=== PATIENT | female | born 1970 | race Caucasian/White ===

== ENCOUNTER 2017-03-05 13:57 | Inpatient (IN) | payer OTHER ==
[2017-03-05 15:58] VITALS: BMI 21.6
--- NOTE | 2017-03-05 18:54 | HP ---
Admission [facility] Chief Complaint: I WANT TO GO TO REHAB Allergies/Adverse Reactions: Allergies Allergy/AdvReac Type Severity Reaction Status Date / Time shellfish derived Allergy Severe Rash Verified 03/05/17 18:02 No Known Drug Allergies Allergy Verified 03/05/17 18:02 fish Allergy Severe Rash Uncoded 03/05/17 18:02 History of Present Illness: 46 YEARS OLD FEMALE WITH LONG HISTORY OF COCAINE DEPENDENCE HAS GERD NEUROPATHY ESOPHAGITIS Exam Limitations: No Limitations - Ebola screening Have you traveled outside of the country in the last 21 days: No Have you had contact with anyone from an Ebola affected area: No Have you been sick,other than usual withdrawal symptoms: No Do you have a fever: No - Review of Systems Constitutional: Weight Stable EENT: reports: Blurred Vision (LEFT EYE PERIPHERAL LOST) Respiratory: reports: No Symptoms reported Cardiac: reports: No Symptoms Reported GI: reports: Indigestion : reports: No Symptoms Reported Musculoskeletal: reports: Back Pain, Joint Pain, Muscle Pain, Neck Pain Integumentary: reports: Change in Color (ARMS + LEGS = ANXIETY = PICK SKIN) Neuro: reports: No Symptoms reported Endocrine: reports: No Symptoms Reported Hematology: reports: No Symptoms Reported Psychiatric: reports: Judgement Intact, Orientated x3, Anxious, Depressed Other Systems: Reviewed and Negative Patient History - Patient Medical History Hx Anemia: No Hx Asthma: Yes Hx Chronic Obstructive Pulmonary Disease (COPD): No Hx Cancer: No Hx Cardiac Disorders: No Hx Congestive Heart Failure: No Hx Hypertension: No Hx Hypercholesterolemia: No Hx Pacemaker: No HX Cerebrovascular Accident: Yes (04/2016 LEFT EYE ) Hx Seizures: No Hx Dementia: No Hx Diabetes: No Hx Gastrointestinal Disorders: No Hx Liver Disease: No Hx Genitourinary Disorders: No Hx Sexually Transmitted Disorders: No Hx Renal Disease (ESRD): No Hx Thyroid Disease: No Hx Human Immunodeficiency Virus (HIV): No Hx Hepatitis C: No Hx Depression: Yes (AND ANXIETY) Hx Suicide Attempt: No Hx Bipolar Disorder: No Hx Schizophrenia: No - Patient Surgical History Past Surgical History: Yes Hx Neurologic Surgery: No Hx Cataract Extraction: No Hx Cardiac Surgery: No Hx Lung Surgery: No Hx Breast Surgery: No Hx Breast Biopsy: Yes (RIGHT BREAST) Hx Abdominal Surgery: Yes (FOR ACHALASIA IN 2011) Hx Appendectomy: No Hx Cholecystectomy: No Hx Genitourinary Surgery: Yes (FOR ECTOPIC IN 2001) Hx Section: No Hx Orthopedic Surgery: No Hx Hysterectomy: No Anesthesia Reaction: No - PPD History Previous Implant?: Yes Documented Results: Negative w/o proof Implanted On Prior [facility] Admission?: Yes Date: 04/17/15 Results: 0 PPD to be Administered?: Yes - Reproductive History Patient is a Female of Child Bearing Age (11 -55 yrs old): Yes Last Menstrual Period: 02/08/17 Patient : No - Smoking Cessation Smoking history: Current some day smoker Have you smoked in the past 12 months: No Aproximately how many cigarettes per day: 0 Cigars Per Day: 0 Hx Chewing Tobacco Use: No Initiated information on smoking cessation: No - Substance & Tx. History Hx Alcohol Use: No Hx Substance Use: Yes Substance Use Type: Cocaine, Heroin, Tranquilizers Hx Substance Use Treatment: Yes (09/15-09/20/16 [facility] - Substances Abused Cocaine Route: Injection Frequency: Daily Amount used: 100$ Age of first use: 24 Date of Last Use: 03/04/17 Family Disease History - Family Disease History Family Disease History: Other: Father (COPD) Other Family History: ONLY CHILD Admission Physical Exam S - Vital Signs Vital Signs: Vital Signs - 24 hr 03/05/17 15:55 Temperature 97.8 F Pulse Rate 73 Respiratory 20 Rate Blood Pressure 128/85 - Physical General Appearance: Yes: No Apparent Distress, Appropriately Dressed, Thin HEENTM: Yes: Hearing grossly Normal, Normal ENT Inspection, Normocephalic, Normal Voice, Other (LEFT EYE POOR PERIPHERAL VISION) Respiratory: Yes: Chest Non-Tender, Lungs Clear, Normal Breath Sounds, No Respiratory Distress, No Accessory Muscle Use Neck: Yes: Supple, Trachea in good position Breast: Yes: Breasts Symetrical Cardiology: Yes: Regular Rhythm, Regular Rate, S1, S2 Abdominal: Yes: Normal Bowel Sounds, Non Tender, Soft Genitourinary: Yes: Within Normal Limits Back: Yes: Normal Inspection Musculoskeletal: Yes: full range of Motion, Gait Steady, Back pain, Muscle Pain Extremities: Yes: Normal Range of Motion, Non-Tender, Erythema (MULTIPLE SKIN ABRASION + SCARS = SKIN PICKING "MANY YEARS") Neurological: Yes: Fully Oriented, Alert, Motor Strength 5/5, Depressed Affect Integumentary: Yes: Warm, Track [place] (RIGHT INNER ELBOW) Lymphatic: Yes: Within Normal Limits - Diagnostic (1) Anxiety and depression Current Visit: Yes Status: Suspected (2) Asthma Current Visit: Yes Status: Chronic Qualifiers: Asthma severity: mild intermittent Asthma complication type: with status asthmaticus Qualified Code(s): J45.22 - Mild intermittent asthma with status asthmaticus (3) Nicotine dependence Current Visit: Yes Status: Acute Qualifiers: Nicotine product type: cigarettes Substance use status: in withdrawal Qualified Code(s): F17.213 - Nicotine dependence, cigarettes, with withdrawal (4) GERD (gastroesophageal reflux disease) Current Visit: Yes Status: Chronic Qualifiers: Esophagitis presence: without esophagitis Qualified Code(s): K21.9 - Gastro-esophageal reflux disease without esophagitis (5) Sequela, post-stroke Current Visit: Yes Status: Resolved Comment: LEFT EYE POOR PERIPHERAL VISION (6) Left wrist injury Current Visit: Yes Status: Ruled-out Qualifiers: Encounter type: sequela Qualified Code(s): S69.92XS - Unspecified injury of left wrist, hand and finger(s), sequela Comment: DENIES TRAUMA (7) Akathisia Current Visit: Yes Status: Chronic Comment: PROTONIX DAILY ZANTAC PRN Cleared for Admission [facility] - Detox or Rehab [facility] Level of Care: Observation Bed Detox Regimen/Protocol: Not Applicable Claeared for Rehab Admission: Yes [facility] Breath Alcohol Content Breath Alcohol Content: 0 Urine Pregancy Test - Result Urine Test Results: Negative- NO Line Present Urine Drug Screen - Results Drug Screen Negative: No Urine Drug Screen Results: [place]-Cocaine, OPI-Opiates, AMP-Amphetamines, BZO- Benzodiazepines Inpatient Rehab Admission - Initial Determination Are CD services needed?: Yes Free of communicable disease: Yes Not in need of hospitalization: Yes - Rehab Admission Criteria Previous failed treatment: Yes Poor recovery environment: Yes Comorbidities: Yes Lacks judgement: No Patient is meeting Inpatient Rehab admission criteria:: Yes
[2017-03-05] MEDS ORDERED: MAG HYDROX/AL HYDROX/SIMETH 30 ML UNIT-DOSE CUP PO PRN (19:09)
[2017-03-05] MEDS ORDERED: LOPERAMIDE HCL 2 MG CAPSULE PO PRN (19:09)
[2017-03-05] MEDS ORDERED: ACETAMINOPHEN 325 MG TABLET (FP) PO PRN (19:09)
[2017-03-05] MEDS ORDERED: MAGNESIUM CITRATE 300 ML BOTTLE PO PRN (19:09)
[2017-03-05] MEDS ORDERED: hydrOXYzine PAMOATE 50 MG CAPSULE (FP) PO PRN (19:09)
[2017-03-05] MEDS ORDERED: MENTHOL/PHENOL 1 EACH UD MM PRN (19:09)
[2017-03-05] MEDS ORDERED: guaiFENesin/D-METHORPHAN HB 10 ML UNIT-DOSE CUPS PO PRN (19:09)
[2017-03-05] MEDS ORDERED: RANITIDINE HCL 150 MG TABLET (FP) PO PRN (19:16)
[2017-03-05] MEDS ORDERED: ALBUTEROL SO4 18 GM HFA INHALER IH PRN (19:17)
[2017-03-05] MEDS ORDERED: BACITRACIN 0.9 GM PACKET TP ONE (19:23)
[2017-03-05] MEDS ORDERED: METHOCARBAMOL 500 MG TABLET PO PRN (19:28)
[2017-03-05] MEDS ORDERED: RANITIDINE HCL 150 MG TABLET (FP) PO SCH (22:00)
[2017-03-05] MEDS ORDERED: BACITRACIN 0.9 GM PACKET ONE (22:47)
[2017-03-05] MEDS ORDERED: TUBERCULIN PPD 5 TU/0.1ML VIAL ID ONE (22:48)
[2017-03-05] MEDS: THIAMINE HCL 100 MG TABLET (FP) PO SCH (22:49)
[2017-03-05] MEDS: GABAPENTIN 300 MG CAPSULE (FP) PO SCH (22:49)
[2017-03-05] MEDS: diphenhydrAMINE HCL 50 MG CAPSULE PO PRN (23:22)
[2017-03-06] MEDS: VARENICLINE TARTRATE 1 MG TAB PO SCH ×3 (00:50→21:41)
[2017-03-06 01:37] LABS: URINE APPEARANCE SLCLOUDY; URINE BILIRUBIN NEGATIVE (NEGATIVE); URINE BLOOD NEGATIVE (NEGATIVE); URINE COLOR YELLOW; URINE GLUCOSE (UA) NEGATIVE (NEGATIVE); URINE KETONE NEGATIVE (NEGATIVE); URINE LEUK ESTERASE TRACE (NEGATIVE); URINE NITRITE NEGATIVE (NEGATIVE); URINE PROTEIN NEGATIVE (NEGATIVE); URINE UROBILINOGEN NEGATIVE mg/dL (0.2-1.0)
[2017-03-06 01:48] LABS: URINE BACTERIA RARE /hpf (NONE SEEN); URINE MUCUS RARE; URINE RBC 1 /hpf (0-3); URINE WBC 5 /hpf (3-5)
[2017-03-06] MEDS: NIFEdipine 10 MG CAPSULE (FP) PO SCH ×2 (08:23→15:24)
[2017-03-06] MEDS ORDERED: PT OWN MED DRAWER 7, Y5N ONE (09:02)
--- NOTE | 2017-03-06 09:53 | EKG ---
Test Reason : Blood Pressure : / mmHG Vent. Rate : 080 BPM Atrial Rate : 080 BPM P-R Int : 154 ms QRS Dur : 092 ms QT Int : 396 ms P-R-T Axes : 075 076 052 degrees QTc Int : 456 ms NORMAL SINUS RHYTHM NORMAL ECG NO PREVIOUS ECGS AVAILABLE Confirmed by YOLANDA ALVARADO, DELVIN ([id number]) on 03/06/2017 9:53:09 AM Referred By: Tim Mullen Confirmed By:DELVIN GUERRERO MD
[2017-03-06 10:01] LABS: MCH 26.9 pg (25.7-33.7); MCHC 31.9 g/dl (32.0-36.0); MEAN CELL VOLUME 84.3 fl (80-96); PLATELET COUNT 372 K/MM3 (134-434); RDW 18.6 % (11.6-15.6); WHITE BLOOD COUNT 3.8 K/mm3 (4.0-10.0)
[2017-03-06] MEDS: LORATADINE 10 MG TABLET PO SCH (10:01)
[2017-03-06] MEDS: PRENATAL VITAMINS W/ FOLIC ACID TABLET (FP) PO SCH (10:01)
[2017-03-06] MEDS: ASPIRIN 81 MG CHEWABLE TABLETS PO SCH (10:01)
[2017-03-06] MEDS: PANTOPRAZOLE 40 MG TABLET (FP) PO SCH (10:02)
[2017-03-06] MEDS: GABAPENTIN 300 MG CAPSULE (FP) PO SCH ×2 (10:02→21:40)
--- NOTE | 2017-03-06 10:46 | HP ---
Psychiatrist Admission - Data Date of interview: 03/06/17 Admission source: ALESSIA Gerard Identifying data: This is the first admission to [address] [place] [address] for this 46 years old Cypriot female deanne jay 2 (20 yo and 8 yo).Yongest daughter resides with the patient's parents.Patient resides with parents,supported by PA. Medical History: Significant for GERD,BA, Psychiatric History: Reports first contact with psychiatrist in her late to address depressed mood,anxiety.Patient was placed on Klonopin,Wellbutrin and other medications.No psychiatric admissions,no hitory of suicidal attempts.Patient sees psychiatrist at [facility].Current meds: Wellbutrin XL 75 mg po daily,Klonopin 0,5 mg po bid prn for anxiety,Adderall 30 mg po bid(?). Physical/Sexual Abuse/Trauma History: denies Vital Signs: Vital Signs - 24 hr 03/05/17 03/06/17 03/06/17 15:55 00:30 07:42 Temperature 97.8 F 97.9 F Pulse Rate 73 77 Respiratory 20 16 16 Rate Blood Pressure 128/85 126/80 Allergies/Adverse Reactions: Allergies Allergy/AdvReac Type Severity Reaction Status Date / Time shellfish derived Allergy Severe Rash Verified 03/05/17 18:02 No Known Drug Allergies Allergy Verified 03/05/17 18:02 fish Allergy Severe Rash Uncoded 03/05/17 18:02 Concur with the findings of this exam: Yes - Substance Abuse/Tx History Hx Alcohol Use: Yes (on and off) Hx Substance Use: Yes (cocaine since 24 yo,spending $100 daily,heroin since 24 yo injection) Substance Use Type: Cocaine, Heroin Hx Substance Use Treatment: Yes (multiple detox treatments including [facility] ) Mental Status Exam - Mental Status Exam Alert and Oriented to: Time, Place, Person Cognitive Function: Grossly Intact Patient Appearance: Well Groomed Mood: Sad Affect: Mood Congruent, Labile Patient Behavior: Cooperative Speech Pattern: Clear Voice Loudness: Normal Thought Process: Goal Oriented Thought Disorder: Not Present Hallucinations: Denies Suicidal Ideation: Denies Homicidal Ideation: Denies Insight/Judgement: Fair Sleep: Fair Appetite: Fair Muscle strength/Tone: Normal Gait/Station: Normal Psychiatric Findings - Problem List ([place] 1, 2,3) (1) Nicotine dependence Current Visit: Yes Status: Chronic Qualifiers: Nicotine product type: cigarettes Substance use status: in withdrawal Qualified Code(s): F17.213 - Nicotine dependence, cigarettes, with withdrawal (2) Asthma Current Visit: Yes Status: Chronic Qualifiers: Asthma severity: mild intermittent Asthma complication type: with status asthmaticus Qualified Code(s): J45.22 - Mild intermittent asthma with status asthmaticus (3) GERD (gastroesophageal reflux disease) Current Visit: Yes Status: Chronic Qualifiers: Esophagitis presence: without esophagitis Qualified Code(s): K21.9 - Gastro-esophageal reflux disease without esophagitis (4) Sequela, post-stroke Current Visit: Yes Status: Resolved Comment: LEFT EYE POOR PERIPHERAL VISION (5) ADHD (attention deficit hyperactivity disorder) Current Visit: Yes Status: Chronic (6) Achalasia Current Visit: Yes Status: Chronic (7) Cocaine dependence Current Visit: Yes Status: Chronic Qualifiers: Substance use status: uncomplicated Qualified Code(s): F14.20 - Cocaine dependence, uncomplicated (8) EtOH dependence Current Visit: Yes Status: Chronic Qualifiers: Substance use status: uncomplicated Qualified Code(s): F10.20 - Alcohol dependence, uncomplicated (9) Sedative hypnotic or anxiolytic dependence Current Visit: Yes Status: Chronic (10) Opioid dependence Current Visit: Yes Status: Chronic (11) Substance induced mood disorder Current Visit: Yes Status: Chronic - Initial Treatment Plan Initial Treatment Plan: Wellbutrin XL 150 mg po daily,Elavil 25 mg po tid and Belsomra 15 mg po hs prn for insomnia.Will monitor progress.
[2017-03-06 11:10] LABS: BILIRUBIN,TOTAL 0.3 mg/dL (0.2-1.0); CALCIUM 9.9 mg/dL (8.5-10.1)
[2017-03-06 11:18] LABS: ALBUMIN 3.6 g/dl (3.4-5.0); ALK PHOS 141 U/L (45-117); ANION GAP 10 (8-16); CO2 26 mmol/L (21-32); CREATININE 0.7 mg/dL (0.55-1.02); GLUCOSE,RANDOM 131 mg/dL (74-106); SGOT/AST 16 U/L (15-37); SGPT/ALT 20 U/L (12-78); TOT PROT 6.9 g/dl (6.4-8.2)
[2017-03-06] MEDS ORDERED: FLU VACCINE QUAD 60 MCG/0.5 ML (MDV 17-18) IM ONE (12:00)
[2017-03-06 12:01] LABS: HIV 1 & 2 AB NEGATIVE; HIV 1 AGp24 NEGATIVE
[2017-03-06] MEDS: AMITRIPTYLINE HCL 25 MG TABLET (FP) PO SCH ×2 (13:12→21:41)
[2017-03-06] MEDS: ACETAMINOPHEN 500 MG TABLET (FP) PO PRN (16:44)
[2017-03-06] MEDS: NIFEdipine E.R. 30 MG TABLET (FP) PO SCH (16:44)
[2017-03-06] MEDS: THIAMINE HCL 100 MG TABLET (FP) PO SCH (21:41)
[2017-03-06] MEDS: SUVOREXANT 10 MG TABLET PO PRN (21:41)
[2017-03-07] MEDS: AMITRIPTYLINE HCL 25 MG TABLET (FP) PO SCH ×3 (06:39→21:33)
[2017-03-07] MEDS: GABAPENTIN 300 MG CAPSULE (FP) PO SCH ×2 (10:26→21:33)
[2017-03-07] MEDS: VARENICLINE TARTRATE 1 MG TAB PO SCH ×2 (10:26→21:33)
[2017-03-07] MEDS: PRENATAL VITAMINS W/ FOLIC ACID TABLET (FP) PO SCH (10:27)
[2017-03-07] MEDS: NIFEdipine E.R. 30 MG TABLET (FP) PO SCH (10:27)
[2017-03-07] MEDS: PANTOPRAZOLE 40 MG TABLET (FP) PO SCH (10:28)
[2017-03-07] MEDS: LORATADINE 10 MG TABLET PO SCH (10:28)
[2017-03-07] MEDS: ASPIRIN 81 MG CHEWABLE TABLETS PO SCH (10:28)
[2017-03-07] MEDS ORDERED: PT OWN MED DRAWER 7, Y5N ONE ×2 (10:30→17:38)
[2017-03-07] MEDS: ACETAMINOPHEN 500 MG TABLET (FP) PO PRN (10:30)
[2017-03-07] MEDS ORDERED: COLLOIDAL OATMEAL 1 BAR EACH TP PRN (13:26)
[2017-03-07] MEDS: BACITRACIN 0.9 GM PACKET TP SCH ×2 (15:15→21:33)
[2017-03-07] MEDS: THIAMINE HCL 100 MG TABLET (FP) PO SCH (21:33)
[2017-03-07] MEDS: SUVOREXANT 10 MG TABLET PO PRN (21:37)
[2017-03-08] MEDS: AMITRIPTYLINE HCL 25 MG TABLET (FP) PO SCH ×3 (06:28→21:20)
[2017-03-08] MEDS ORDERED: PT OWN MED DRAWER 7, Y5N ONE (08:32)
[2017-03-08] MEDS: PRENATAL VITAMINS W/ FOLIC ACID TABLET (FP) PO SCH (10:23)
[2017-03-08] MEDS: VARENICLINE TARTRATE 1 MG TAB PO SCH ×2 (10:23→21:20)
[2017-03-08] MEDS: BACITRACIN 0.9 GM PACKET TP SCH ×2 (10:23→21:19)
[2017-03-08] MEDS: ASPIRIN 81 MG CHEWABLE TABLETS PO SCH (10:24)
[2017-03-08] MEDS: PANTOPRAZOLE 40 MG TABLET (FP) PO SCH (10:24)
[2017-03-08] MEDS: GABAPENTIN 300 MG CAPSULE (FP) PO SCH (10:24)
[2017-03-08] MEDS: LORATADINE 10 MG TABLET PO SCH (10:24)
[2017-03-08] MEDS: ACETAMINOPHEN 500 MG TABLET (FP) PO PRN (10:25)
[2017-03-08] MEDS: NIFEdipine E.R. 30 MG TABLET (FP) PO SCH (10:28)
[2017-03-08] MEDS: MAGNESIUM HYDROX 2400MG/30ML ORAL SUSPENSION 30 ML CUP PO PRN (15:25)
[2017-03-08] MEDS: SUVOREXANT 10 MG TABLET PO PRN (21:20)
[2017-03-08] MEDS: THIAMINE HCL 100 MG TABLET (FP) PO SCH (21:20)
[2017-03-08] MEDS: diphenhydrAMINE HCL 50 MG CAPSULE PO PRN (21:20)
[2017-03-09] MEDS: AMITRIPTYLINE HCL 25 MG TABLET (FP) PO SCH ×3 (06:30→21:24)
[2017-03-09] MEDS: ACETAMINOPHEN 500 MG TABLET (FP) PO PRN (06:31)
[2017-03-09] MEDS ORDERED: PT OWN MED DRAWER 7, Y5N ONE ×2 (08:47→19:12)
[2017-03-09] MEDS: NIFEdipine E.R. 30 MG TABLET (FP) PO SCH (10:06)
[2017-03-09] MEDS: BACITRACIN 0.9 GM PACKET TP SCH ×2 (10:06→21:24)
[2017-03-09] MEDS: VARENICLINE TARTRATE 1 MG TAB PO SCH ×2 (10:06→21:24)
[2017-03-09] MEDS: GABAPENTIN 300 MG CAPSULE (FP) PO SCH ×2 (10:07→13:30)
[2017-03-09] MEDS: LORATADINE 10 MG TABLET PO SCH (10:07)
[2017-03-09] MEDS: ASPIRIN 81 MG CHEWABLE TABLETS PO SCH (10:07)
[2017-03-09] MEDS: PANTOPRAZOLE 40 MG TABLET (FP) PO SCH (10:07)
[2017-03-09] MEDS: PRENATAL VITAMINS W/ FOLIC ACID TABLET (FP) PO SCH (10:07)
--- NOTE | 2017-03-09 16:11 | PN ---
[facility] Progress Note Note: HISTORY OF MIGRAINE ON IMITREX,IMITREX 50 MGS PO ORDERED,CLOSE MONITORING
[2017-03-09] MEDS ORDERED: SUMAtriptan SUCCINATE 50 MG TABLET PO ONE (16:15)
[2017-03-09] MEDS: THIAMINE HCL 100 MG TABLET (FP) PO SCH (21:24)
[2017-03-10] MEDS: AMITRIPTYLINE HCL 25 MG TABLET (FP) PO SCH ×3 (06:31→21:25)
[2017-03-10] MEDS: ASPIRIN 81 MG CHEWABLE TABLETS PO SCH (09:26)
[2017-03-10] MEDS: PRENATAL VITAMINS W/ FOLIC ACID TABLET (FP) PO SCH (09:26)
[2017-03-10] MEDS: NIFEdipine E.R. 30 MG TABLET (FP) PO SCH (09:27)
[2017-03-10] MEDS: PANTOPRAZOLE 40 MG TABLET (FP) PO SCH (09:27)
[2017-03-10] MEDS: BACITRACIN 0.9 GM PACKET TP SCH ×2 (09:27→21:25)
[2017-03-10] MEDS: LORATADINE 10 MG TABLET PO SCH (09:27)
[2017-03-10] MEDS: VARENICLINE TARTRATE 1 MG TAB PO SCH ×2 (09:27→21:25)
[2017-03-10] MEDS: GABAPENTIN 300 MG CAPSULE (FP) PO SCH ×2 (09:27→13:07)
[2017-03-10] MEDS: P-EPHED 60MG/TRIPROLIDI 2.5MG TABLET PO PRN ×2 (09:30→20:09)
[2017-03-10] MEDS: ACETAMINOPHEN 500 MG TABLET (FP) PO PRN ×2 (11:14→20:08)
[2017-03-10] MEDS ORDERED: SUVOREXANT 10 MG TABLET PO PRN (13:08)
[2017-03-10] MEDS: THIAMINE HCL 100 MG TABLET (FP) PO SCH (21:25)
[2017-03-10] MEDS: diphenhydrAMINE HCL 50 MG CAPSULE PO PRN (21:25)
[2017-03-11] MEDS: AMITRIPTYLINE HCL 25 MG TABLET (FP) PO SCH ×3 (06:29→21:46)
[2017-03-11] MEDS: P-EPHED 60MG/TRIPROLIDI 2.5MG TABLET PO PRN (06:30)
[2017-03-11] MEDS: ASPIRIN 81 MG CHEWABLE TABLETS PO SCH (10:26)
[2017-03-11] MEDS: VARENICLINE TARTRATE 1 MG TAB PO SCH ×2 (10:26→21:46)
[2017-03-11] MEDS: NIFEdipine E.R. 30 MG TABLET (FP) PO SCH (10:26)
[2017-03-11] MEDS: PANTOPRAZOLE 40 MG TABLET (FP) PO SCH (10:26)
[2017-03-11] MEDS: GABAPENTIN 300 MG CAPSULE (FP) PO SCH ×2 (10:26→13:07)
[2017-03-11] MEDS: PRENATAL VITAMINS W/ FOLIC ACID TABLET (FP) PO SCH (10:26)
[2017-03-11] MEDS: LORATADINE 10 MG TABLET PO SCH (10:26)
[2017-03-11] MEDS: BACITRACIN 0.9 GM PACKET TP SCH ×2 (11:11→22:26)
[2017-03-11] MEDS: MAGNESIUM HYDROX 2400MG/30ML ORAL SUSPENSION 30 ML CUP PO PRN (12:29)
[2017-03-11] MEDS: THIAMINE HCL 100 MG TABLET (FP) PO SCH (21:46)
[2017-03-11] MEDS: QUEtiapine FUMARATE 100 MG TABLET (FP) PO SCH (21:46)
[2017-03-11] MEDS: GABAPENTIN 400 MG CAPSULE (FP) PO SCH (21:46)
[2017-03-11] MEDS: diphenhydrAMINE HCL 50 MG CAPSULE PO PRN (21:47)
[2017-03-12] MEDS: P-EPHED 60MG/TRIPROLIDI 2.5MG TABLET PO PRN (06:15)
[2017-03-12] MEDS: AMITRIPTYLINE HCL 25 MG TABLET (FP) PO SCH ×3 (06:15→21:26)
[2017-03-12] MEDS ORDERED: PT OWN MED DRAWER 7, Y5N ONE (08:37)
[2017-03-12] MEDS: ASPIRIN 81 MG CHEWABLE TABLETS PO SCH (10:16)
[2017-03-12] MEDS: BACITRACIN 0.9 GM PACKET TP SCH ×2 (10:16→21:24)
[2017-03-12] MEDS: PRENATAL VITAMINS W/ FOLIC ACID TABLET (FP) PO SCH (10:17)
[2017-03-12] MEDS: VARENICLINE TARTRATE 1 MG TAB PO SCH ×2 (10:17→21:24)
[2017-03-12] MEDS: PANTOPRAZOLE 40 MG TABLET (FP) PO SCH (10:17)
[2017-03-12] MEDS: LORATADINE 10 MG TABLET PO SCH (10:17)
[2017-03-12] MEDS: GABAPENTIN 300 MG CAPSULE (FP) PO SCH ×2 (10:17→13:13)
[2017-03-12] MEDS: NIFEdipine E.R. 30 MG TABLET (FP) PO SCH (10:32)
[2017-03-12] MEDS: MAGNESIUM HYDROX 2400MG/30ML ORAL SUSPENSION 30 ML CUP PO PRN (10:40)
[2017-03-12] MEDS: QUEtiapine FUMARATE 100 MG TABLET (FP) PO SCH (21:24)
[2017-03-12] MEDS: diphenhydrAMINE HCL 50 MG CAPSULE PO PRN (21:26)
[2017-03-12] MEDS: GABAPENTIN 400 MG CAPSULE (FP) PO SCH (21:26)
[2017-03-12] MEDS: THIAMINE HCL 100 MG TABLET (FP) PO SCH (21:26)
[2017-03-13] MEDS: AMITRIPTYLINE HCL 25 MG TABLET (FP) PO SCH ×3 (06:18→21:30)
[2017-03-13] MEDS: VARENICLINE TARTRATE 1 MG TAB PO SCH ×2 (10:27→21:30)
[2017-03-13] MEDS: GABAPENTIN 300 MG CAPSULE (FP) PO SCH ×2 (10:27→13:11)
[2017-03-13] MEDS: PRENATAL VITAMINS W/ FOLIC ACID TABLET (FP) PO SCH (10:27)
[2017-03-13] MEDS: BACITRACIN 0.9 GM PACKET TP SCH ×2 (10:27→21:30)
[2017-03-13] MEDS: LORATADINE 10 MG TABLET PO SCH (10:27)
[2017-03-13] MEDS: NIFEdipine E.R. 30 MG TABLET (FP) PO SCH (10:27)
[2017-03-13] MEDS: ASPIRIN 81 MG CHEWABLE TABLETS PO SCH (10:28)
[2017-03-13] MEDS: PANTOPRAZOLE 40 MG TABLET (FP) PO SCH (10:28)
[2017-03-13] MEDS: P-EPHED 60MG/TRIPROLIDI 2.5MG TABLET PO PRN (11:47)
[2017-03-13] MEDS: ACETAMINOPHEN 500 MG TABLET (FP) PO PRN (11:48)
[2017-03-13] MEDS: QUEtiapine FUMARATE 100 MG TABLET (FP) PO SCH (21:30)
[2017-03-13] MEDS: diphenhydrAMINE HCL 50 MG CAPSULE PO PRN (21:31)
[2017-03-13] MEDS: THIAMINE HCL 100 MG TABLET (FP) PO SCH (21:31)
[2017-03-13] MEDS: GABAPENTIN 400 MG CAPSULE (FP) PO SCH (21:31)
[2017-03-14] MEDS: AMITRIPTYLINE HCL 25 MG TABLET (FP) PO SCH ×3 (06:18→21:22)
[2017-03-14] MEDS ORDERED: PT OWN MED DRAWER 7, Y5N ONE (08:23)
[2017-03-14] MEDS: NIFEdipine E.R. 30 MG TABLET (FP) PO SCH (10:08)
[2017-03-14] MEDS: LORATADINE 10 MG TABLET PO SCH (10:08)
[2017-03-14] MEDS: ASPIRIN 81 MG CHEWABLE TABLETS PO SCH (10:08)
[2017-03-14] MEDS: PRENATAL VITAMINS W/ FOLIC ACID TABLET (FP) PO SCH (10:08)
[2017-03-14] MEDS: BACITRACIN 0.9 GM PACKET TP SCH ×2 (10:08→21:22)
[2017-03-14] MEDS: PANTOPRAZOLE 40 MG TABLET (FP) PO SCH (10:08)
[2017-03-14] MEDS: VARENICLINE TARTRATE 1 MG TAB PO SCH ×2 (10:09→21:22)
[2017-03-14] MEDS: GABAPENTIN 300 MG CAPSULE (FP) PO SCH ×2 (10:09→13:08)
[2017-03-14] MEDS: THIAMINE HCL 100 MG TABLET (FP) PO SCH (21:21)
[2017-03-14] MEDS: diphenhydrAMINE HCL 50 MG CAPSULE PO PRN (21:21)
[2017-03-14] MEDS: GABAPENTIN 400 MG CAPSULE (FP) PO SCH (21:22)
[2017-03-14] MEDS: QUEtiapine FUMARATE 100 MG TABLET (FP) PO SCH (21:22)
[2017-03-15] MEDS: AMITRIPTYLINE HCL 25 MG TABLET (FP) PO SCH ×3 (06:14→21:30)
[2017-03-15] MEDS: P-EPHED 60MG/TRIPROLIDI 2.5MG TABLET PO PRN (06:15)
[2017-03-15] MEDS: PRENATAL VITAMINS W/ FOLIC ACID TABLET (FP) PO SCH (10:29)
[2017-03-15] MEDS: BACITRACIN 0.9 GM PACKET TP SCH ×2 (10:29→21:30)
[2017-03-15] MEDS: ASPIRIN 81 MG CHEWABLE TABLETS PO SCH (10:29)
[2017-03-15] MEDS: NIFEdipine E.R. 30 MG TABLET (FP) PO SCH (10:29)
[2017-03-15] MEDS: GABAPENTIN 300 MG CAPSULE (FP) PO SCH ×2 (10:29→13:19)
[2017-03-15] MEDS: PANTOPRAZOLE 40 MG TABLET (FP) PO SCH (10:30)
[2017-03-15] MEDS: VARENICLINE TARTRATE 1 MG TAB PO SCH ×2 (10:30→21:45)
[2017-03-15] MEDS: LORATADINE 10 MG TABLET PO SCH (10:30)
[2017-03-15] MEDS: THIAMINE HCL 100 MG TABLET (FP) PO SCH (21:30)
[2017-03-15] MEDS: GABAPENTIN 400 MG CAPSULE (FP) PO SCH (21:30)
[2017-03-15] MEDS: QUEtiapine FUMARATE 100 MG TABLET (FP) PO SCH (21:30)
[2017-03-15] MEDS: ACETAMINOPHEN 500 MG TABLET (FP) PO PRN (21:31)
[2017-03-16] MEDS: AMITRIPTYLINE HCL 25 MG TABLET (FP) PO SCH ×3 (06:33→21:27)
[2017-03-16] MEDS: BACITRACIN 0.9 GM PACKET TP SCH ×2 (09:42→21:27)
[2017-03-16] MEDS: ASPIRIN 81 MG CHEWABLE TABLETS PO SCH (09:42)
[2017-03-16] MEDS ORDERED: PT OWN MED DRAWER 7, Y5N ONE (09:43)
[2017-03-16] MEDS: LORATADINE 10 MG TABLET PO SCH (09:44)
[2017-03-16] MEDS: VARENICLINE TARTRATE 1 MG TAB PO SCH ×2 (09:44→21:27)
[2017-03-16] MEDS: P-EPHED 60MG/TRIPROLIDI 2.5MG TABLET PO PRN (09:44)
[2017-03-16] MEDS: PRENATAL VITAMINS W/ FOLIC ACID TABLET (FP) PO SCH (09:44)
[2017-03-16] MEDS: GABAPENTIN 300 MG CAPSULE (FP) PO SCH ×2 (09:45→13:19)
[2017-03-16] MEDS: PANTOPRAZOLE 40 MG TABLET (FP) PO SCH (09:45)
[2017-03-16] MEDS: NIFEdipine E.R. 30 MG TABLET (FP) PO SCH (09:45)
[2017-03-16] MEDS: GABAPENTIN 400 MG CAPSULE (FP) PO SCH (21:27)
[2017-03-16] MEDS: QUEtiapine FUMARATE 100 MG TABLET (FP) PO SCH (21:27)
[2017-03-16] MEDS: diphenhydrAMINE HCL 50 MG CAPSULE PO PRN (21:28)
[2017-03-16] MEDS: THIAMINE HCL 100 MG TABLET (FP) PO SCH (21:28)
[2017-03-17] MEDS: AMITRIPTYLINE HCL 25 MG TABLET (FP) PO SCH ×3 (06:37→21:24)
[2017-03-17 07:21] VITALS: TEMP 97.8
[2017-03-17] MEDS: BACITRACIN 0.9 GM PACKET TP SCH ×2 (10:06→21:22)
[2017-03-17] MEDS: ASPIRIN 81 MG CHEWABLE TABLETS PO SCH (10:06)
[2017-03-17] MEDS: VARENICLINE TARTRATE 1 MG TAB PO SCH ×2 (10:06→21:23)
[2017-03-17] MEDS: GABAPENTIN 300 MG CAPSULE (FP) PO SCH ×2 (10:06→13:59)
[2017-03-17] MEDS: PRENATAL VITAMINS W/ FOLIC ACID TABLET (FP) PO SCH (10:06)
[2017-03-17] MEDS: NIFEdipine E.R. 30 MG TABLET (FP) PO SCH (10:06)
[2017-03-17] MEDS: LORATADINE 10 MG TABLET PO SCH (10:07)
[2017-03-17] MEDS: PANTOPRAZOLE 40 MG TABLET (FP) PO SCH (10:07)
[2017-03-17] MEDS: GABAPENTIN 400 MG CAPSULE (FP) PO SCH (21:23)
[2017-03-17] MEDS: QUEtiapine FUMARATE 100 MG TABLET (FP) PO SCH (21:23)
[2017-03-17] MEDS: THIAMINE HCL 100 MG TABLET (FP) PO SCH (21:24)
[2017-03-17] MEDS: diphenhydrAMINE HCL 50 MG CAPSULE PO PRN (21:25)
[2017-03-18] MEDS: AMITRIPTYLINE HCL 25 MG TABLET (FP) PO SCH ×3 (06:23→21:29)
[2017-03-18] MEDS: NIFEdipine E.R. 30 MG TABLET (FP) PO SCH (10:24)
[2017-03-18] MEDS: PRENATAL VITAMINS W/ FOLIC ACID TABLET (FP) PO SCH (10:24)
[2017-03-18] MEDS: GABAPENTIN 300 MG CAPSULE (FP) PO SCH ×2 (10:24→13:37)
[2017-03-18] MEDS: VARENICLINE TARTRATE 1 MG TAB PO SCH ×2 (10:24→21:29)
[2017-03-18] MEDS: LORATADINE 10 MG TABLET PO SCH (10:24)
[2017-03-18] MEDS: PANTOPRAZOLE 40 MG TABLET (FP) PO SCH (10:24)
[2017-03-18] MEDS: ASPIRIN 81 MG CHEWABLE TABLETS PO SCH (10:24)
[2017-03-18] MEDS: P-EPHED 60MG/TRIPROLIDI 2.5MG TABLET PO PRN (10:26)
[2017-03-18] MEDS: BACITRACIN 0.9 GM PACKET TP SCH ×2 (10:27→21:29)
[2017-03-18] MEDS: MAGNESIUM HYDROX 2400MG/30ML ORAL SUSPENSION 30 ML CUP PO PRN (12:59)
--- NOTE | 2017-03-18 14:13 | PN ---
Psychiatric Progress Note Vital Signs: Vital Signs Period Temp Pulse Resp BP Sys/Jones Pulse Ox Last 24 Hr 97.8 F 102-102 16-18 98-118/65-74 Date of Session: 03/18/17 Chief Complaint:: Discharge visit HPI: Alcohol,Cocaine,opioid and Anxiolytic dependence comorbid with Substance induced mood dsorder. ROS: S/P Stroke,BA,GERD. Current Medications: Active Medications Generic Name Dose Route Start Last Admin Trade Name Freq PRN Reason Stop Dose Admin Acetaminophen 1,000 mg 03/06/17 14:46 03/15/17 21:31 Tylenol - PO 1,000 mg Q6H PRN Administration PAIN Al Hydroxide/Mg Hydroxide 30 ml 03/05/17 19:09 Mylanta Oral Suspension - PO Q6H PRN DYSPEPSIA Albuterol Sulfate 2 puff 03/05/17 19:17 Ventolin Hfa Inhaler - IH Q4H PRN SHORT OF BREATH/WHEEZING Amitriptyline HCl 25 mg 03/06/17 14:00 03/18/17 13:37 Elavil - PO 25 mg TID KATERIN Administration Aspirin 81 mg 03/06/17 10:00 03/18/17 10:24 Asa - PO 81 mg DAILY KATERIN Administration Bacitracin 0.9 gm 03/07/17 13:52 03/18/17 10:27 Bacitracin - TP Not Given BID KATERIN Bupropion HCl 150 mg 03/06/17 12:15 03/18/17 10:24 Wellbutrin Xl - PO 150 mg DAILY KATERIN Administration Colloidal Oatmeal 1 applic 03/07/17 13:26 03/07/17 15:58 Aveeno Soap - TP 1 bar DAILY PRN Administration HYGEINE Diphenhydramine HCl 50 mg 03/05/17 19:09 03/17/17 21:25 Benadryl - PO 50 mg HSMR1 PRN Administration INSOMNIA Eucalyptus/Menthol/Phenol/Sorbitol 1 each 03/05/17 19:09 Cepastat Lozenge - MM Q4H PRN SORE THROAT Gabapentin 300 mg 03/08/17 15:51 03/18/17 13:37 Neurontin - PO 300 mg BID@1000,1400 KATERIN Administration Gabapentin 800 mg 03/11/17 22:00 03/17/17 21:23 Neurontin - PO 800 mg HS KATERIN Administration Guaifenesin 10 ml 03/05/17 19:09 Robitussin Dm - PO Q6H PRN COUGH Hydroxyzine Pamoate 50 mg 03/05/17 19:09 Vistaril - PO Q4H PRN AGITATION Loperamide HCl 4 mg 03/05/17 19:09 Imodium - PO Q6H PRN DIARRHEA Loratadine 10 mg 03/06/17 10:00 03/18/17 10:24 Claritin - PO 10 mg DAILY KATERIN Administration Magnesium Citrate 300 ml 03/05/17 19:09 03/12/17 15:40 Citroma - PO 300 ml Q48H PRN Administration CONSTIPATION Magnesium Hydroxide 30 ml 03/05/17 19:09 03/18/17 12:59 Milk Of Magnesia - PO 30 ml DAILY PRN Administration CONSTIPATION Methocarbamol 500 mg 03/05/17 19:28 Robaxin - PO QID PRN BACK PAIN Nifedipine 30 mg 03/06/17 14:45 03/18/17 10:24 Procardia Xl - PO 30 mg DAILY KATERIN Administration Pantoprazole Sodium 40 mg 03/06/17 10:00 03/18/17 10:24 Protonix - PO 40 mg DAILY KATERIN Administration Multivit/Folic Acid/Iron 1 tab 03/06/17 10:00 03/18/17 10:24 Vitamins ([facility]) - PO 1 tab DAILY KATERIN Administration Pseudoephedrine/Triprolidine 1 combo 03/05/17 19:09 03/18/17 10:26 Actifed - PO 1 combo TID PRN Administration NASAL CONGESTION Quetiapine Fumarate 100 mg 03/11/17 22:00 03/17/17 21:23 Seroquel - PO 100 mg HS KATERIN Administration Ranitidine HCl 150 mg 03/05/17 19:16 03/11/17 21:46 Zantac - PO 150 mg BID PRN Administration DYSPEPSIA Thiamine HCl 100 mg 03/05/17 22:00 03/17/17 21:24 Vitamin B1 - PO 100 mg HS KATERIN Administration Varenicline 1 mg 03/05/17 22:00 03/18/17 10:24 Chantix - PO 1 mg BID KATERIN Administration Current Side Effect: No Lab tests ordered: No Lab tests reviewed: Yes Provider note:: Patient will complete this program tomorrow 03/19/17.She has met her treatment goals and will continue to address her issues on outpatient basis .Patient reports finding that current medications:Gabapentin 300 mg po bid ,Elavil 25 mg po tid,Wellbutrin XL 150 mg po am and Seroquel 100 mg po hs help to cope with depression,anxiety,mood instability and insomnia.Scripts for 30 days provided. Supportive therpay privided focusing on relapse prevention.Coping skills,support system utilizations has been discussed with patient to maintain recovery. PAtient is stable for discharge tomorrow . Total face to face time:: 30 Mental Status Exam - Mental Status Exam Alert and Oriented to: Time, Place, Person Cognitive Function: Grossly Intact Patient Appearance: Well Groomed Mood: Hopeful, Euthymic Affect: Mood Congruent Patient Behavior: Cooperative Speech Pattern: Clear Voice Loudness: Normal Thought Process: Goal Oriented Thought Disorder: Not Present Hallucinations: Denies Suicidal Ideation: Denies Homicidal Ideation: Denies Insight/Judgement: Fair Sleep: Fair Appetite: Good Muscle strength/Tone: Normal Gait/Station: Normal Psychiatric Treatment Plan - Problem List (1) Nicotine dependence Current Visit: Yes Qualifiers: Nicotine product type: cigarettes Substance use status: in withdrawal Qualified Code(s): F17.213 - Nicotine dependence, cigarettes, with withdrawal; F17.213 - Nicotine dependence, cigarettes, with withdrawal (2) Asthma Current Visit: Yes Qualifiers: Asthma severity: mild intermittent Asthma complication type: with status asthmaticus (3) GERD (gastroesophageal reflux disease) Current Visit: Yes Qualifiers: Esophagitis presence: without esophagitis Qualified Code(s): K21.9 - Gastro-esophageal reflux disease without esophagitis; K21.9 - Gastro- esophageal reflux disease without esophagitis; K21.9 - Gastro-esophageal reflux disease without esophagitis (4) Sequela, post-stroke Current Visit: Yes Comment: LEFT EYE POOR PERIPHERAL VISION (5) ADHD (attention deficit hyperactivity disorder) Current Visit: Yes (6) Achalasia Current Visit: Yes (7) Cocaine dependence Current Visit: Yes Qualifiers: Substance use status: uncomplicated Qualified Code(s): F14.20 - Cocaine dependence, uncomplicated; F14.20 - Cocaine dependence, uncomplicated; F14.20 - Cocaine dependence, uncomplicated (8) EtOH dependence Current Visit: Yes Qualifiers: Substance use status: uncomplicated Qualified Code(s): F10.20 - Alcohol dependence, uncomplicated; F10.20 - Alcohol dependence, uncomplicated; F10.20 - Alcohol dependence, uncomplicated (9) Sedative hypnotic or anxiolytic dependence Current Visit: Yes (10) Opioid dependence Current Visit: Yes (11) Substance induced mood disorder Current Visit: Yes
[2017-03-18] MEDS: THIAMINE HCL 100 MG TABLET (FP) PO SCH (21:28)
[2017-03-18] MEDS: GABAPENTIN 400 MG CAPSULE (FP) PO SCH (21:29)
[2017-03-18] MEDS: QUEtiapine FUMARATE 100 MG TABLET (FP) PO SCH (21:29)
[2017-03-18] MEDS: diphenhydrAMINE HCL 50 MG CAPSULE PO PRN (21:30)
[2017-03-19] MEDS: AMITRIPTYLINE HCL 25 MG TABLET (FP) PO SCH (06:15)
[2017-03-19] MEDS: LORATADINE 10 MG TABLET PO SCH (09:28)
[2017-03-19] MEDS: GABAPENTIN 300 MG CAPSULE (FP) PO SCH (09:28)
[2017-03-19] MEDS: NIFEdipine E.R. 30 MG TABLET (FP) PO SCH (09:28)
[2017-03-19] MEDS: PANTOPRAZOLE 40 MG TABLET (FP) PO SCH (09:28)
[2017-03-19] MEDS: VARENICLINE TARTRATE 1 MG TAB PO SCH (09:28)
[2017-03-19] MEDS: ASPIRIN 81 MG CHEWABLE TABLETS PO SCH (09:28)
[2017-03-19] MEDS: PRENATAL VITAMINS W/ FOLIC ACID TABLET (FP) PO SCH (09:28)
[2017-03-19] MEDS: BACITRACIN 0.9 GM PACKET TP SCH (09:29)
[2017-03-19 10:16] VITALS: BP 122/73; PULSE 57
== END 2017-03-19 10:25 | disposition home or self-care (01) | DRG 772 ==
LOC: YASAS 13:57 → Y3E 19:12
PROVIDERS: ADMIT Psychiatry & Neurology Psychiatry; ATTEND Psychiatry & Neurology Psychiatry
PROC: HZ42ZZZ Group Counseling for Substance Abuse Treatment, Cognitive-Behavioral (ICD-10-PCS; principal; 2017-03-05)
DX: F11.20 Opioid dependence, uncomplicated (principal); F13.20 Sedative, hypnotic or anxiolytic dependence, uncomplicated; F10.20 Alcohol dependence, uncomplicated; F14.20 Cocaine dependence, uncomplicated; F17.213 Nicotine dependence, cigarettes, with withdrawal; F90.9 Attention-deficit hyperactivity disorder, unspecified type; F19.24 Other psychoactive substance dependence with psychoactive substance-induced mood disorder; J45.22 Mild intermittent asthma with status asthmaticus; K21.9 Gastro-esophageal reflux disease without esophagitis; I69.398 Other sequelae of cerebral infarction; K22.0 Achalasia of cardia; Z91.013 Allergy to seafood
CPT/HCPCS: 36415; 73110-TC-LT; 80053; 81003; 81015; 85027; 86593; 87389; 90688; 93005; 93010; G0008

== ENCOUNTER 2017-11-08 14:34 | Inpatient (IN) | payer OTHER ==
[2017-11-08 15:24] VITALS: BMI 22.4
--- NOTE | 2017-11-08 19:10 | HP ---
Admission ROS [facility] Chief Complaint: SEEKING REHAB SERVICES Allergies/Adverse Reactions: Allergies Allergy/AdvReac Type Severity Reaction Status Date / Time shellfish derived Allergy Severe Rash Verified 11/08/17 18:43 No Known Drug Allergies Allergy Verified 11/08/17 18:43 fish Allergy Severe Rash Uncoded 11/08/17 18:43 History of Present Illness: 47 Y.O. WOMAN WITH A HISTORY OF ALCOHOL DEPENDENCE IS HERE SEEKING REHAB SERVICES. SHE WAS LAST ADMITTED HERE FOR REHAB IN 03/2017 FOR COCAINE DEPENDENCE. LONGEST PERIOD OF ALCOHOL ABSTINENCE HAS BEEN 7 YEARS. Exam Limitations: No Limitations - Ebola screening Have you traveled outside of the country in the last 21 days: No Have you had contact with anyone from an Ebola affected area: No Have you been sick,other than usual withdrawal symptoms: No Do you have a fever: No - Review of Systems Constitutional: No Symptoms Reported EENT: reports: No Symptoms Reported Respiratory: reports: No Symptoms reported Cardiac: reports: No Symptoms Reported GI: reports: No Symptoms Reported : reports: No Symptoms Reported Musculoskeletal: reports: Back Pain Integumentary: reports: No Symptoms Reported Neuro: reports: No Symptoms reported Endocrine: reports: No Symptoms Reported Hematology: reports: Anemia (KD) Psychiatric: reports: Orientated x3, Anxious, Depressed Other Systems: Reviewed and Negative Patient History - Patient Medical History Hx Anemia: No Hx Asthma: No Hx Chronic Obstructive Pulmonary Disease (COPD): No Hx Cancer: No Hx Cardiac Disorders: No Hx Congestive Heart Failure: No Hx Hypertension: No Hx Hypercholesterolemia: No Hx Pacemaker: No HX Cerebrovascular Accident: Yes (04/2016: DIMINISHED PERIPHERAL VISION TO LEFT EYE ) Hx Seizures: No Hx Dementia: No Hx Diabetes: No Hx Gastrointestinal Disorders: Yes Hx Liver Disease: No Hx Genitourinary Disorders: No Hx Sexually Transmitted Disorders: No Hx Renal Disease (ESRD): No Hx Thyroid Disease: No Hx Human Immunodeficiency Virus (HIV): No Hx Hepatitis C: No Hx Depression: Yes Hx Suicide Attempt: No Hx Bipolar Disorder: No Hx Schizophrenia: No - Patient Surgical History Past Surgical History: Yes Hx Neurologic Surgery: No Hx Cataract Extraction: No Hx Cardiac Surgery: No Hx Lung Surgery: No Hx Breast Surgery: No Hx Breast Biopsy: Yes (RIGHT BREAST) Hx Abdominal Surgery: Yes (FOR ACHALASIA IN 2011) Hx Appendectomy: No Hx Cholecystectomy: No Hx Genitourinary Surgery: Yes (FOR ECTOPIC IN 2002) Hx Section: No Hx Orthopedic Surgery: No Hx Hysterectomy: No Anesthesia Reaction: No - PPD History Previous Implant?: Yes Documented Results: Negative w/proof Date: 03/08/17 Results: 0 PPD to be Administered?: No - Reproductive History Patient is a Female of Child Bearing Age (11 -55 yrs old): Yes Last Menstrual Period: 10/16/17 Patient : No - Smoking Cessation Smoking history: Current some day smoker Have you smoked in the past 12 months: Yes Aproximately how many cigarettes per day: 1 Cigars Per Day: 0 Hx Chewing Tobacco Use: No Initiated information on smoking cessation: Yes 'Breaking Loose' booklet given: 11/08/17 - Substance & Tx. History Hx Alcohol Use: Yes Hx Substance Use: Yes Substance Use Type: Alcohol, Cocaine Hx Substance Use Treatment: Yes (03/2017: DETOX ) - Substances Abused Alcohol Route: Inhalation Frequency: 1-2 times per week Amount used: 2-12OZ BOTTLES OF BEER Age of first use: 22 Date of Last Use: 11/07/17 Family Disease History - Family Disease History Family Disease History: Other: Father (COPD) Admission Physical Exam [facility] - Vital Signs Vital Signs: Vital Signs - 24 hr 11/08/17 15:22 Temperature 98.4 F Pulse Rate 103 H Respiratory 18 Rate Blood Pressure 119/76 - Physical General Appearance: Yes: Anxious HEENTM: Yes: Hearing grossly Normal, Normocephalic Respiratory: Yes: Chest Non-Tender, Lungs Clear, Normal Breath Sounds, No Respiratory Distress, No Accessory Muscle Use Neck: Yes: No masses,lesions,Nodules, Trachea in good position Breast: Yes: Breast Exam Deferred Cardiology: Yes: Regular Rhythm, Tachycardia Abdominal: Yes: Normal Bowel Sounds, Non Tender, Flat Genitourinary: Yes: Within Normal Limits Back: Yes: Normal Inspection Musculoskeletal: Yes: full range of Motion, Gait Steady Extremities: Yes: Normal Capillary Refill, Normal Inspection Neurological: Yes: key worker II-XII NML intact, Alert, Normal Mood/Affect, Normal Response Integumentary: Yes: Normal Color, Dry, Warm Lymphatic: Yes: Within Normal Limits - Diagnostic (1) Status post CVA Current Visit: Yes Status: Chronic (2) Seasonal allergies Current Visit: Yes Status: Chronic (3) Alcohol dependence with uncomplicated withdrawal Current Visit: Yes Status: Chronic (4) GERD (gastroesophageal reflux disease) Current Visit: Yes Status: Chronic Qualifiers: Esophagitis presence: without esophagitis Qualified Code(s): K21.9 - Gastro -esophageal reflux disease without esophagitis (5) Nicotine dependence Current Visit: Yes Status: Chronic Qualifiers: Nicotine product type: cigarettes Substance use status: in withdrawal Qualified Code(s): F17.213 - Nicotine dependence, cigarettes, with withdrawal (6) Neuropathy Current Visit: Yes Status: Chronic Cleared for Admission [facility] - Detox or Rehab [facility] Level of Care: Observation Bed Claeared for Rehab Admission: Yes [facility] Breath Alcohol Content Breath Alcohol Content: 0 Urine Pregancy Test - Result Urine Test Results: Negative- NO Line Present Urine Drug Screen - Results Drug Screen Negative: No Urine Drug Screen Results: AMP-Amphetamines, BZO-Benzodiazepines Inpatient Rehab Admission - Initial Determination Are CD services needed?: Yes Free of communicable disease: Yes Not in need of hospitalization: Yes - Rehab Admission Criteria Previous failed treatment: Yes Poor recovery environment: Yes Comorbidities: Yes Lacks judgement: Yes Patient is meeting Inpatient Rehab admission criteria:: Yes
[2017-11-08] MEDS ORDERED: SUMAtriptan SUCCINATE 50 MG TABLET PO PRN (19:27)
[2017-11-08] MEDS ORDERED: IBUPROFEN 400 MG TABLET (FP) PO PRN (19:31)
[2017-11-08] MEDS ORDERED: guaiFENesin/D-METHORPHAN HB 10 ML UNIT-DOSE CUPS PO PRN (19:31)
[2017-11-08] MEDS ORDERED: MENTHOL/PHENOL 1 EACH UD MM PRN (19:31)
[2017-11-08] MEDS ORDERED: MAGNESIUM CITRATE 300 ML BOTTLE PO PRN (19:31)
[2017-11-08] MEDS ORDERED: MAGNESIUM HYDROX 2400MG/30ML ORAL SUSPENSION 30 ML CUP PO PRN (19:31)
[2017-11-08] MEDS ORDERED: MAG HYDROX/AL HYDROX/SIMETH 30 ML UNIT-DOSE CUP PO PRN (19:31)
[2017-11-08] MEDS ORDERED: LOPERAMIDE HCL 2 MG CAPSULE PO PRN (19:31)
[2017-11-08] MEDS: THIAMINE HCL 100 MG TABLET (FP) PO SCH (21:43)
[2017-11-08] MEDS: GABAPENTIN 300 MG CAPSULE (FP) PO SCH (21:43)
[2017-11-08] MEDS: ACETAMINOPHEN 325 MG TABLET (FP) PO PRN (21:45)
[2017-11-08] MEDS: BACITRACIN 0.9 GM PACKET TP SCH (21:47)
[2017-11-08] MEDS ORDERED: MELATONIN 5 MG TABLETS PO PRN (22:00)
[2017-11-08] MEDS: VARENICLINE TARTRATE 1 MG TAB PO SCH (23:36)
[2017-11-08] MEDS ORDERED: SUMAtriptan SUCCINATE 50 MG TABLET PO ONE (23:45)
[2017-11-09] MEDS: GABAPENTIN 300 MG CAPSULE (FP) PO SCH ×3 (06:46→21:45)
[2017-11-09] MEDS: ACETAMINOPHEN 325 MG TABLET (FP) PO PRN (06:46)
[2017-11-09] MEDS: BACITRACIN 0.9 GM PACKET TP SCH ×2 (09:18→21:45)
[2017-11-09] MEDS: PRENATAL VITAMINS W/ FOLIC ACID TABLET (FP) PO SCH (09:18)
[2017-11-09] MEDS: ASPIRIN 81 MG CHEWABLE TABLETS PO SCH (09:18)
[2017-11-09] MEDS: VARENICLINE TARTRATE 1 MG TAB PO SCH ×2 (09:19→21:46)
[2017-11-09] MEDS: PANTOPRAZOLE 40 MG TABLET (FP) PO SCH (09:19)
[2017-11-09 10:24] LABS: HEMATOCRIT 32.2 % (32.4-45.2); HEMOGLOBIN 10.4 GM/dL (10.7-15.3); MCHC 32.2 g/dl (32.0-36.0); MEAN CELL VOLUME 80.8 fl (80-96); PLATELET COUNT 276 K/MM3 (134-434); RBC 3.99 M/mm3 (3.60-5.2); RDW 16.1 % (11.6-15.6); WHITE BLOOD COUNT 4.7 K/mm3 (4.0-10.0)
[2017-11-09 10:50] LABS: CHLORIDE 103 mmol/L (98-107); POTASSIUM 3.8 mmol/L (3.5-5.1); SODIUM 139 mmol/L (136-145)
[2017-11-09] MEDS: CETIRIZINE HCL PO SCH (11:00)
[2017-11-09 11:04] LABS: ALK PHOS 109 U/L (45-117); ANION GAP 8 (8-16); BLOOD UREA NITROGEN 8 mg/dL (7-18); CALCIUM 9.2 mg/dL (8.5-10.1); CO2 28 mmol/L (21-32); CREATININE 0.8 mg/dL (0.55-1.02); GLUCOSE,RANDOM 85 mg/dL (74-106); SGOT/AST 15 U/L (15-37); SGPT/ALT 16 U/L (12-78); TOT PROT 7.6 g/dl (6.4-8.2)
[2017-11-09 18:19] LABS: URINE APPEARANCE SLCLOUDY; URINE BILIRUBIN NEGATIVE (<2.0 mg/dL); URINE BLOOD NEGATIVE (NEGATIVE); URINE COLOR LTYELLOW; URINE GLUCOSE (UA) NEGATIVE (NEGATIVE); URINE KETONE NEGATIVE (NEGATIVE); URINE LEUK ESTERASE NEGATIVE (NEGATIVE); URINE NITRITE NEGATIVE (NEGATIVE); URINE PROTEIN NEGATIVE (NEGATIVE); URINE UROBILINOGEN NEGATIVE mg/dL (0.2-1.0)
[2017-11-09] MEDS ORDERED: PT OWN MED DRAWER 7, Y5N ONE (20:11)
[2017-11-09] MEDS: THIAMINE HCL 100 MG TABLET (FP) PO SCH (21:45)
--- NOTE | 2017-11-09 23:38 | PN ---
[facility] Progress Note Note: ASKED TO SEE CLIENT SHE WAS FOUND IN HER ROOM WITH ANOTHER CLIENT (S.H.) WHILE PUTTING ON HER HOSPITAL PANTS. CLIENT DENIES ANY PHYSICAL CONTACT OR INJURIES. DENIES ANY C/O.STATES PATIENT S.H. WAS IN HER ROOM TALKING WHILE SHE WAS CHANGING CLOTHING. CLIENT IS A/O X3 NAD. NO PHYSICAL INJURIES NOTED. CONT W/ REHAB
[2017-11-10] MEDS: ACETAMINOPHEN 325 MG TABLET (FP) PO PRN ×2 (07:01→21:58)
[2017-11-10] MEDS: GABAPENTIN 300 MG CAPSULE (FP) PO SCH ×3 (07:01→21:57)
[2017-11-10] MEDS: ASPIRIN 81 MG CHEWABLE TABLETS PO SCH (09:05)
[2017-11-10] MEDS: BACITRACIN 0.9 GM PACKET TP SCH ×2 (09:05→21:57)
[2017-11-10] MEDS: CETIRIZINE HCL PO SCH (09:06)
[2017-11-10] MEDS: VARENICLINE TARTRATE 1 MG TAB PO SCH ×2 (09:06→21:57)
[2017-11-10] MEDS: PRENATAL VITAMINS W/ FOLIC ACID TABLET (FP) PO SCH (09:06)
[2017-11-10] MEDS: PANTOPRAZOLE 40 MG TABLET (FP) PO SCH (09:24)
[2017-11-10] MEDS: THIAMINE HCL 100 MG TABLET (FP) PO SCH (21:56)
--- NOTE | 2017-11-10 22:45 | EKG ---
Test Reason : Blood Pressure : / mmHG Vent. Rate : 103 BPM Atrial Rate : 103 BPM P-R Int : 154 ms QRS Dur : 088 ms QT Int : 346 ms P-R-T Axes : 082 078 061 degrees QTc Int : 453 ms SINUS TACHYCARDIA POSSIBLE LEFT ATRIAL ENLARGEMENT BORDERLINE ECG WHEN COMPARED WITH ECG OF 05-MAR-2017 21:29, NO SIGNIFICANT CHANGE WAS FOUND Confirmed by STACY CONKLIN MD ([id number]) on 11/10/2017 10:44:37 PM Referred By: Confirmed By:STACY CONKLIN MD
[2017-11-11] MEDS: GABAPENTIN 300 MG CAPSULE (FP) PO SCH ×3 (06:21→22:00)
--- NOTE | 2017-11-11 08:36 | PN ---
S Progress Note Note: 11/09/17.Call from medical staff for medications order on 11/09/17.Wellbutrin 300 mg po am,Trazodone 100 mg po hs and Neurontin 600 mg po tid has been placed.
[2017-11-11] MEDS ORDERED: PT OWN MED DRAWER 7, Y5N ONE ×3 (09:12→23:45)
--- NOTE | 2017-11-11 10:23 | HP ---
Psychiatrist Admission - Data Date of interview: 11/11/17 Admission source: ALESSIA Duckworth Identifying data: Lopez the second admission to [address] [place] [address] for this 47 years old mother of (21 and 9 yo),resodes with parents and young daudhter,unemployed,supported by PA. Medical History: GERD,Status post CVA,Achalazia. Psychiatric History: Sees private psychiatrist in [place]. Physical/Sexual Abuse/Trauma History: not willing to discuss Vital Signs: Vital Signs - 24 hr 11/11/17 11/11/17 11/11/17 00:30 03:30 07:24 Temperature 97.8 F Pulse Rate 79 Respiratory 18 18 18 Rate Blood Pressure 110/73 Allergies/Adverse Reactions: Allergies Allergy/AdvReac Type Severity Reaction Status Date / Time shellfish derived Allergy Severe Rash Verified 11/08/17 18:43 No Known Drug Allergies Allergy Verified 11/08/17 18:43 fish Allergy Severe Rash Uncoded 11/08/17 18:43 Concur with the findings of this exam: Yes - Substance Abuse/Tx History Hx Alcohol Use: Yes (reports drining since 17 yo,beer or wine) Hx Substance Use: Yes (heroin since 33 yo (IV)-stopped about 2 yo,) Substance Use Type: Alcohol, Cocaine (cocaine since 26 yo(recently IV)), Opiates , Tranquilizers Hx Substance Use Treatment: Yes (completd this program in Feb 2017) Mental Status Exam - Mental Status Exam Alert and Oriented to: Time, Place, Person Cognitive Function: Grossly Intact Patient Appearance: Well Groomed Mood: Anxious, Expansive Affect: Mood Congruent, Labile Patient Behavior: Distractible, Talkative, Cooperative Speech Pattern: Clear Voice Loudness: Normal Thought Process: Goal Oriented Thought Disorder: Not Present Hallucinations: Denies Suicidal Ideation: Denies Homicidal Ideation: Denies Insight/Judgement: Fair Sleep: Difficulty falling asleep Appetite: Fair Muscle strength/Tone: Normal Gait/Station: Normal Psychiatric Findings - Problem List ([place] 1, 2,3) (1) GERD (gastroesophageal reflux disease) Current Visit: Yes Status: Chronic Qualifiers: Esophagitis presence: without esophagitis Qualified Code(s): K21.9 - Gastro -esophageal reflux disease without esophagitis (2) Neuropathy Current Visit: Yes Status: Chronic (3) Nicotine dependence Current Visit: Yes Status: Chronic Qualifiers: Nicotine product type: cigarettes Substance use status: in withdrawal Qualified Code(s): F17.213 - Nicotine dependence, cigarettes, with withdrawal (4) Seasonal allergies Current Visit: Yes Status: Chronic (5) Status post CVA Current Visit: Yes Status: Chronic (6) Substance-induced anxiety disorder Current Visit: No Status: Acute (7) Achalasia and cardiospasm Current Visit: Yes Status: Chronic (8) EtOH dependence Current Visit: Yes Status: Chronic Qualifiers: Substance use status: uncomplicated Qualified Code(s): F10.20 - Alcohol dependence, uncomplicated (9) Opioid dependence Current Visit: Yes Status: Chronic (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
[2017-11-11] MEDS: PRENATAL VITAMINS W/ FOLIC ACID TABLET (FP) PO SCH (10:59)
[2017-11-11] MEDS: BACITRACIN 0.9 GM PACKET TP SCH ×2 (10:59→22:00)
[2017-11-11] MEDS: ASPIRIN 81 MG CHEWABLE TABLETS PO SCH (10:59)
[2017-11-11] MEDS: PANTOPRAZOLE 40 MG TABLET (FP) PO SCH (10:59)
[2017-11-11] MEDS: VARENICLINE TARTRATE 1 MG TAB PO SCH ×2 (11:00→22:04)
[2017-11-11] MEDS: CETIRIZINE HCL PO SCH (11:00)
[2017-11-11] MEDS: ACETAMINOPHEN 325 MG TABLET (FP) PO PRN ×2 (11:01→16:00)
[2017-11-11] MEDS: hydrOXYzine PAMOATE 50 MG CAPSULE (FP) PO PRN ×2 (16:00→22:01)
[2017-11-11] MEDS: THIAMINE HCL 100 MG TABLET (FP) PO SCH (22:00)
[2017-11-11] MEDS: traZODone HCL 100 MG TABLET (FP) PO SCH (22:01)
[2017-11-12] MEDS: hydrOXYzine PAMOATE 50 MG CAPSULE (FP) PO PRN ×4 (06:31→21:51)
[2017-11-12] MEDS: GABAPENTIN 300 MG CAPSULE (FP) PO SCH ×3 (06:31→21:51)
[2017-11-12] MEDS: ACETAMINOPHEN 325 MG TABLET (FP) PO PRN ×2 (06:32→15:11)
[2017-11-12] MEDS: CETIRIZINE HCL PO SCH (10:38)
[2017-11-12] MEDS: VARENICLINE TARTRATE 1 MG TAB PO SCH ×2 (10:39→21:52)
[2017-11-12] MEDS: BACITRACIN 0.9 GM PACKET TP SCH ×2 (10:39→21:51)
[2017-11-12] MEDS: ASPIRIN 81 MG CHEWABLE TABLETS PO SCH (10:39)
[2017-11-12] MEDS: PRENATAL VITAMINS W/ FOLIC ACID TABLET (FP) PO SCH (10:39)
[2017-11-12] MEDS: PANTOPRAZOLE 40 MG TABLET (FP) PO SCH (10:39)
--- NOTE | 2017-11-12 15:26 | PN ---
[facility] Progress Note Note: Patient reports she was seen in ED a month ago for a fall face first in which she suffered a broken nose, since then she has had swollen right pinky finger in which the swelling has slowly improved. Patient denies limit ROM or parasthesia to the area. Patient also reports hx of migraine headaches which treated with immitrex PRN. Home meds reviewed and immitrex will be continued. Vital Signs Temperature 98.2 F 11/12/17 07:21 Pulse Rate 77 11/12/17 07:21 Respiratory Rate 18 11/12/17 07:21 Blood Pressure 100/64 11/12/17 07:21 O2 Sat by Pulse Oximetry (%) Laboratory Last Values WBC 4.7 K/mm3 (4.0-10.0) 11/09/17 07:30 RBC 3.99 M/mm3 (3.60-5.2) 11/09/17 07:30 Hgb 10.4 GM/dL (10.7-15.3) L 11/09/17 07:30 Hct 32.2 % (32.4-45.2) L 11/09/17 07:30 MCV 80.8 fl (80-96) 11/09/17 07:30 MCH 26.0 pg (25.7-33.7) 11/09/17 07:30 MCHC 32.2 g/dl (32.0-36.0) 11/09/17 07:30 RDW 16.1 % (11.6-15.6) H 11/09/17 07:30 Plt Count 276 K/MM3 (134-434) D 11/09/17 07:30 MPV 7.0 fl (7.5-11.1) L 11/09/17 07:30 Sodium 139 mmol/L (136-145) 11/09/17 07:30 Potassium 3.8 mmol/L (3.5-5.1) 11/09/17 07:30 Chloride 103 mmol/L (98-107) 11/09/17 07:30 Carbon Dioxide 28 mmol/L (21-32) 11/09/17 07:30 Anion Gap 8 (8-16) 11/09/17 07:30 BUN 8 mg/dL (7-18) 11/09/17 07:30 Creatinine 0.8 mg/dL (0.55-1.02) 11/09/17 07:30 Creat Clearance w eGFR > 60 (>60) 11/09/17 07:30 Random Glucose 85 mg/dL (74-106) 11/09/17 07:30 Calcium 9.2 mg/dL (8.5-10.1) 11/09/17 07:30 Total Bilirubin 1.0 mg/dL (0.2-1.0) D 11/09/17 07:30 AST 15 U/L (15-37) 11/09/17 07:30 ALT 16 U/L (12-78) 11/09/17 07:30 Alkaline Phosphatase 109 U/L (45-117) 11/09/17 07:30 Total Protein 7.6 g/dl (6.4-8.2) 11/09/17 07:30 Albumin 4.0 g/dl (3.4-5.0) 11/09/17 07:30 Urine Color Ltyellow 11/09/17 17:00 Urine Appearance Slcloudy 11/09/17 17:00 Urine pH 7.0 (5.0-8.0) 11/09/17 17:00 Ur Specific [place] 1.008 (1.001-1.035) 11/09/17 17:00 Urine Protein Negative (NEGATIVE) 11/09/17 17:00 Urine Glucose (UA) Negative (NEGATIVE) 11/09/17 17:00 Urine Ketones Negative (NEGATIVE) 11/09/17 17:00 Urine Blood Negative (NEGATIVE) 11/09/17 17:00 Urine Nitrite Negative (NEGATIVE) 11/09/17 17:00 Urine Bilirubin Negative (<2.0 mg/dL) 11/09/17 17:00 Urine Urobilinogen Negative mg/dL (0.2-1.0) 11/09/17 17:00 Ur Leukocyte Esterase Negative (NEGATIVE) 11/09/17 17:00 RPR Titer Nonreactive (NONREACTIVE) 11/09/17 07:30 A/P Aox3 in no apparent distress + headache PEERL no adventitious breath sounds Full ROM, + pain right pinky finger, ,mild swelling Plan: continue immitrex PRN tylenol for finger pain cold compress to finger continue to monitor
[2017-11-12] MEDS ORDERED: PT OWN MED DRAWER 7, Y5N ONE ×5 (15:31→23:32)
[2017-11-12] MEDS ORDERED: SUMAtriptan SUCCINATE 50 MG TABLET PO ONE (16:30)
[2017-11-12] MEDS: THIAMINE HCL 100 MG TABLET (FP) PO SCH (21:51)
[2017-11-12] MEDS: traZODone HCL 100 MG TABLET (FP) PO SCH (21:51)
[2017-11-13] MEDS: GABAPENTIN 300 MG CAPSULE (FP) PO SCH ×3 (06:26→21:31)
[2017-11-13] MEDS: hydrOXYzine PAMOATE 50 MG CAPSULE (FP) PO PRN ×4 (06:26→21:31)
[2017-11-13] MEDS: ACETAMINOPHEN 325 MG TABLET (FP) PO PRN ×2 (06:27→10:40)
[2017-11-13] MEDS: BACITRACIN 0.9 GM PACKET TP SCH ×2 (10:37→21:31)
[2017-11-13] MEDS: ASPIRIN 81 MG CHEWABLE TABLETS PO SCH (10:39)
[2017-11-13] MEDS: CETIRIZINE HCL PO SCH (10:39)
[2017-11-13] MEDS: PANTOPRAZOLE 40 MG TABLET (FP) PO SCH (10:39)
[2017-11-13] MEDS: PRENATAL VITAMINS W/ FOLIC ACID TABLET (FP) PO SCH (10:39)
[2017-11-13] MEDS: VARENICLINE TARTRATE 1 MG TAB PO SCH ×2 (10:40→21:32)
[2017-11-13] MEDS: P-EPHED 60MG/TRIPROLIDI 2.5MG TABLET PO PRN (12:45)
[2017-11-13] MEDS: THIAMINE HCL 100 MG TABLET (FP) PO SCH (21:30)
[2017-11-13] MEDS: traZODone HCL 100 MG TABLET (FP) PO SCH (21:31)
[2017-11-13] MEDS ORDERED: PT OWN MED DRAWER 7, Y5N ONE (21:32)
[2017-11-14] MEDS: GABAPENTIN 300 MG CAPSULE (FP) PO SCH ×2 (06:24→13:08)
[2017-11-14] MEDS: hydrOXYzine PAMOATE 50 MG CAPSULE (FP) PO PRN ×2 (06:24→12:09)
[2017-11-14] MEDS: ACETAMINOPHEN 325 MG TABLET (FP) PO PRN (06:24)
[2017-11-14 06:57] VITALS: BP 91/61; PULSE 80; TEMP 97.8
[2017-11-14] MEDS: P-EPHED 60MG/TRIPROLIDI 2.5MG TABLET PO PRN (10:13)
[2017-11-14] MEDS: ASPIRIN 81 MG CHEWABLE TABLETS PO SCH (10:14)
[2017-11-14] MEDS: CETIRIZINE HCL PO SCH (10:14)
[2017-11-14] MEDS: PANTOPRAZOLE 40 MG TABLET (FP) PO SCH (10:14)
[2017-11-14] MEDS: PRENATAL VITAMINS W/ FOLIC ACID TABLET (FP) PO SCH (10:14)
[2017-11-14] MEDS: BACITRACIN 0.9 GM PACKET TP SCH (10:15)
[2017-11-14] MEDS: VARENICLINE TARTRATE 1 MG TAB PO SCH (10:15)
--- NOTE | 2017-11-14 11:00 | PN ---
[facility] Progress Note Note:
[2017-11-14] MEDS ORDERED: PT OWN MED DRAWER 7, Y5N ONE (13:13)
== END 2017-11-14 13:44 | disposition home or self-care (01) | DRG 772 ==
LOC: YASAS 14:34 → Y3E 20:12
PROVIDERS: ADMIT Psychiatry & Neurology Psychiatry; ATTEND Psychiatry & Neurology Psychiatry
PROC: HZ42ZZZ Group Counseling for Substance Abuse Treatment, Cognitive-Behavioral (ICD-10-PCS; principal; 2017-11-08)
DX: F11.20 Opioid dependence, uncomplicated (principal); F10.20 Alcohol dependence, uncomplicated; F13.20 Sedative, hypnotic or anxiolytic dependence, uncomplicated; F17.213 Nicotine dependence, cigarettes, with withdrawal; F19.280 Other psychoactive substance dependence with psychoactive substance-induced anxiety disorder; G62.9 Polyneuropathy, unspecified; K21.9 Gastro-esophageal reflux disease without esophagitis; M79.644 Pain in right finger(s); G43.909 Migraine, unspecified, not intractable, without status migrainosus; J30.2 Other seasonal allergic rhinitis; K22.0 Achalasia of cardia; R00.0 Tachycardia, unspecified; I69.398 Other sequelae of cerebral infarction; H53.8 Other visual disturbances; Z91.013 Allergy to seafood
CPT/HCPCS: 36415; 80053; 81003; 85027; 86593; 87389; 93005; 93010

== ENCOUNTER 2019-05-19 12:39 | Inpatient (IN) | payer OTHER ==
[2019-05-19 15:11] VITALS: BMI 23.9
--- NOTE | 2019-05-19 18:57 | HP ---
CIWA Score - Admission Criteria OASAS Guidelines: Admission for Medically Managed Detox: Requires at least one of the followin. CIWA greater than 12 2. Seizures within the past 24 hours 3. Delirium tremens within the past 24 hours 4. Hallucinations within the past 24 hours 5. Acute intervention needed for co occurring medical disorder 6. Acute intervention needed for co occurring psychiatric disorder 7. Severe withdrawal that cannot be handled at a lower level of care (continued vomiting, continued diarrhea, abnormal vital signs) requiring intravenous medication and/or fluids 8. Admitting History and Physical - Primary Care Physician PCP: Mahsa Rahman (Mahsa Rahman) - Admission Chief Complaint: "I'm here for rehab". History of Present Illness: A 48year old female with history of Asthma, CVA in 2016, cocaine use disorder, anxiety, depression, and ADHD who presents here today requesting for rehab. Pt is on suboxone 4-1 sl film daily. Pt states her last dose of suboxone was . Search Terms: fany hebert, 1970 Search Date: 05/19/2019 07:39:09 PM The Drug Utilization Report below displays all of the controlled substance prescriptions, if any, that your patient has filled in the last twelve months. The information displayed on this report is compiled from pharmacy submissions to the Department, and accurately reflects the information as submitted by the pharmacies. This report was requested by: Alma Hanks | Reference #: [id number] You have not added a HEIDI number. Keeping your HEIDI number(s) up to date on the My HEIDI Numbers page will enable the separation of your prescriptions from others ' in the search results. 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 ...LMP: 05/11/19 ...: No Psych: Yes: Anxiety, Depression, Panic, Other (ADHD) ENT: Yes: Other (04/2016: DIMINISHED PERIPHERAL VISION TO LEFT EYE) - Past Surgical History Additional Past Surgical History: Ectopic 2000 and eosophageal sx - Smoking History Smoking history: Current some day smoker Have you smoked in the past 12 months: Yes Aproximately how many cigarettes per day: 2 - Alcohol/Substance Use Hx Alcohol Use: No (reports drining since 17 yo,beer or wine) History of Substance Use: reports: Cocaine Date of Last Use: 03/24/19 - Social History Usual Living Arrangement: Yes: With Significant Other Do you think of yourself as: Straight/Heterosexual ADL: Independent History of Recent Travel: No Admission [facility] Chief Complaint: "I'm here for rehab". Allergies/Adverse Reactions: Allergies Allergy/AdvReac Type Severity Reaction Status Date / Time fish derived Allergy Severe Rash Verified 05/19/19 14:56 shellfish derived Allergy Severe Rash Verified 05/19/19 14:56 No Known Drug Allergies Allergy Verified 05/19/19 14:56 fish Allergy Severe Rash Uncoded 05/19/19 14:56 Exam Limitations: No Limitations - Ebola screening Have you traveled outside of the country in the last 21 days: No Have you had contact with anyone from an Ebola affected area: No Have you been sick,other than usual withdrawal symptoms: No Do you have a fever: No - Review of Systems Constitutional: No Symptoms Reported EENT: reports: Other (Left eye blindness) Respiratory: reports: No Symptoms reported Cardiac: reports: No Symptoms Reported GI: reports: No Symptoms Reported : reports: No Symptoms Reported Musculoskeletal: reports: Back Pain Integumentary: reports: No Symptoms Reported Neuro: reports: No Symptoms reported Endocrine: reports: No Symptoms Reported Hematology: reports: No Symptoms Reported Psychiatric: reports: No Sypmtoms Reported, Judgement Intact, Mood/Affect Appropiate, Orientated x3 Patient History - Patient Medical History Hx Anemia: No Hx Asthma: No Hx Chronic Obstructive Pulmonary Disease (COPD): No Hx Cancer: No Hx Cardiac Disorders: Yes Hx Congestive Heart Failure: No Hx Hypertension: No Hx Hypercholesterolemia: No Hx Pacemaker: No HX Cerebrovascular Accident: Yes (04/2016: DIMINISHED PERIPHERAL VISION TO LEFT EYE ) Hx Seizures: No Hx Dementia: No Hx Diabetes: No Hx Gastrointestinal Disorders: Yes Hx Liver Disease: No Hx Genitourinary Disorders: No Hx Sexually Transmitted Disorders: No Hx Renal Disease (ESRD): No Hx Thyroid Disease: No Hx Human Immunodeficiency Virus (HIV): No Hx Hepatitis C: No Hx Depression: Yes Hx Suicide Attempt: No Hx Bipolar Disorder: No Hx Schizophrenia: No - Patient Surgical History Past Surgical History: Yes Hx Neurologic Surgery: No Hx Cataract Extraction: No Hx Cardiac Surgery: No Hx Lung Surgery: No Hx Breast Surgery: No Hx Breast Biopsy: Yes (RIGHT BREAST) Hx Abdominal Surgery: Yes (FOR ACHALASIA IN 2011) Hx Appendectomy: No Hx Cholecystectomy: No Hx Genitourinary Surgery: Yes (FOR ECTOPIC IN 2001) Hx Section: No Hx Orthopedic Surgery: No Hx Hysterectomy: No Anesthesia Reaction: No - PPD History Previous Implant?: Yes Documented Results: Negative w/o proof Implanted On Prior [facility] Admission?: Yes Date: 05/12/19 Results: 0 PPD to be Administered?: No - Reproductive History Last Menstrual Period: 05/11/19 Patient : No - Smoking Cessation Smoking history: Current some day smoker Have you smoked in the past 12 months: Yes Aproximately how many cigarettes per day: 2 Cigars Per Day: 0 Hx Chewing Tobacco Use: No Initiated information on smoking cessation: Yes 'Breaking Loose' booklet given: 05/19/19 - Substance & Tx. History Hx Alcohol Use: No Hx Substance Use: Yes Substance Use Type: Cocaine Hx Substance Use Treatment: Yes (suboxone) - Substances abused Cocaine Substance route: Inhalation Frequency: 1-3 times last 30 days Amount used: $150 Age of first use: 26 Date of last use: 03/24/19 Admission Physical Exam [facility] - Vital Signs Vital Signs: Vital Signs - 24 hr 05/19/19 15:04 Temperature 99.1 F Pulse Rate 114 H Respiratory 20 Rate Blood Pressure 124/84 Vital Signs 05/19/19 15:04 Temperature 99.1 F Pulse Rate 114 H Respiratory 20 Rate Blood Pressure 124/84 - Physical General Appearance: Yes: No Apparent Distress HEENTM: Yes: EOMI, Normal ENT Inspection, Normocephalic, Normal Voice, CLARISSA Respiratory: Yes: Chest Non-Tender, Lungs Clear, Normal Breath Sounds, No Respiratory Distress, No Accessory Muscle Use Neck: Yes: No masses,lesions,Nodules, Supple, Trachea in good position Breast: Yes: Breast Exam Deferred Cardiology: Yes: Regular Rhythm, Regular Rate, S1, S2 Abdominal: Yes: Normal Bowel Sounds, Non Tender, Flat, Soft Genitourinary: Yes: Within Normal Limits Back: Yes: Normal Inspection Musculoskeletal: Yes: Within Normal Limits, full range of Motion, Gait Steady Extremities: Yes: Normal Capillary Refill, Normal Inspection, Normal Range of Motion, Non-Tender Neurological: Yes: correction officer II-XII NML intact, Fully Oriented, Alert, Motor Strength 5/5, Normal Mood/Affect, Normal Response Integumentary: Yes: Normal Color, Dry, Warm Lymphatic: Yes: Within Normal Limits - Diagnostic (1) Migraine headache Current Visit: No Status: Acute (2) Substance-induced anxiety disorder Current Visit: No Status: Acute (3) ADHD (attention deficit hyperactivity disorder) Current Visit: No Status: Chronic (4) Alcohol dependence with uncomplicated withdrawal Current Visit: No Status: Chronic (5) Asthma Current Visit: No Status: Chronic Qualifiers: Asthma severity: mild intermittent Asthma complication type: with status asthmaticus (6) Cocaine dependence Current Visit: Yes Status: Chronic Qualifiers: Substance use status: uncomplicated Qualified Code(s): F14.20 - Cocaine dependence, uncomplicated (7) GERD (gastroesophageal reflux disease) Current Visit: No Status: Chronic Qualifiers: Esophagitis presence: without esophagitis Qualified Code(s): K21.9 - Gastro -esophageal reflux disease without esophagitis (8) Heroin dependence Current Visit: No Status: Chronic (9) Nicotine dependence Current Visit: Yes Status: Chronic Qualifiers: Nicotine product type: cigarettes Substance use status: in withdrawal Qualified Code(s): F17.213 - Nicotine dependence, cigarettes, with withdrawal (10) Opioid dependence Current Visit: No Status: Chronic (11) Opioid dependence with withdrawal Current Visit: No Status: Chronic (12) Status post CVA Current Visit: No Status: Chronic Cleared for Admission [facility] - Detox or Rehab S Level of Care: Medically Managed Detox Regimen/Protocol: Not Applicable Claeared for Rehab Admission: Yes Breathalyzer - Breathalyzer Breathalyzer: 0 POC Urine test - Test device test lot number: unknown Urine Drug Screen - Test Device Lot number: [id number] Expiration date: 01/06/21 - Control Is test valid?: Yes - Results Drug screen NEGATIVE: Yes Inpatient Rehab Admission - Rehab Decision to Admit Inpatient rehab admission?: Yes - Initial Determination Are CD services needed?: Yes Free of communicable disease: Yes Not in need of hospitalization: Yes - Rehab Admission Criteria Previous failed treatment: Yes Poor recovery environment: Yes Comorbidities: Yes Lacks judgement: No Patient is meeting Inpatient Rehab admission criteria:: Yes
[2019-05-19] MEDS ORDERED: MENTHOL/PHENOL 1 EACH UD MM PRN (19:20)
[2019-05-19] MEDS ORDERED: IBUPROFEN 400 MG TABLET (FP) PO PRN (19:20)
[2019-05-19] MEDS ORDERED: MAGNESIUM CITRATE 300 ML BOTTLE PO PRN (19:20)
[2019-05-19] MEDS ORDERED: LOPERAMIDE HCL 2 MG CAPSULE PO PRN (19:20)
[2019-05-19] MEDS ORDERED: MAG HYDROX/AL HYDROX/SIMETH 30 ML UNIT-DOSE CUP PO PRN (19:20)
[2019-05-19] MEDS: P-EPHED 60MG/TRIPROLIDI 2.5MG TABLET PO PRN (21:58)
[2019-05-19] MEDS: ACETAMINOPHEN 325 MG TABLET (FP) PO PRN (21:59)
[2019-05-19] MEDS: hydrOXYzine PAMOATE 25 MG CAPSULE (FP) PO PRN (21:59)
[2019-05-19] MEDS: THIAMINE HCL 100 MG TABLET (FP) PO SCH (21:59)
[2019-05-19] MEDS ORDERED: MELATONIN 5 MG TABLETS PO PRN (22:00)
--- NOTE | 2019-05-20 07:33 | PN ---
[facility] Progress Note Note: spoke with client about suboxone mgmt. client reports she is on 4 mg daily. at her drug program [facility]. last taken on 05/11/2019 due to being incarcerated. dose was not continued while she was detained. released yesterday and mandated hear for drug treatment. mandate is through drug court. client expresses she would like to continue her suboxone. D/ w client to contact her program to inform them of here where about so she would not be lost to contact. will restart client on her maintenance dose. today will give 2mg q12 x1 day and continue her daily dose of 4mg daily tomorrow. client agrees to above *dose verified via prescription eyeglass maker Reference #: [id number] You have not added a HEIDI number. Keeping your HEIDI number(s) up to date on the My HEIDI Numbers page will enable the separation of your prescriptions from others ' in the search results. Others' Prescriptions Patient Name: Fany Hebert Date: 1970 Address: [address] [place] [address] [place] [address] Sex: Female Rx Written Rx Dispensed Drug Quantity Days Supply Prescriber Name 04/28/2019 04/28/2019 dextroamp-amphetamin 30 mg tab 60 30 López Dumont 04/28/2019 04/28/2019 buprenorphine-naloxone 4-1 mg sl film 30 30 López Dumont
--- NOTE | 2019-05-20 09:52 | PN ---
[facility] Progress Note (SOAP) Subjective: Pt here for rehab. PMHx:A 48year old female with history of Asthma, CVA in 2016, cocaine use disorder, anxiety, depression, and ADHD. Pt is on suboxone 4-1 sl film daily. Pt states her last dose of suboxone was 05/11/19. Objective: P/E: General:No apparent distress HEENTM: Normocephalic, PERRLA NECK: supple Neuro: Cn 2-12 intact MSK: Full weight bearing,full ROM 05/20/19 09:50 Vital Signs Period Temp Pulse Resp BP Sys/Jones Pulse Ox Last 24 Hr 97.8 F-99.1 F 99-114 16-20 124-127/81-84 Assessment: Admitted for rehab. 05/20/19 09:51 Plan: Continue with substance use treatment MAT with suboxone Maintain safety. Continue to monitor.
[2019-05-20] MEDS: PANTOPRAZOLE 40 MG TABLET PO SCH (09:56)
[2019-05-20] MEDS: PRENATAL VITAMINS W/ FOLIC ACID TABLET (FP) PO SCH (09:56)
[2019-05-20] MEDS: BUPRENORPHINE/NALOXONE 2 MG/0.5 MG FILM PACKET SL SCH ×2 (09:56→21:22)
[2019-05-20] MEDS: P-EPHED 60MG/TRIPROLIDI 2.5MG TABLET PO PRN (10:00)
[2019-05-20] MEDS: hydrOXYzine PAMOATE 25 MG CAPSULE (FP) PO PRN (10:01)
[2019-05-20] MEDS: ACETAMINOPHEN 325 MG TABLET (FP) PO PRN (10:01)
[2019-05-20] MEDS: NICOTINE POLACRILEX 2 MG GUM BUC PRN (10:02)
--- NOTE | 2019-05-20 11:05 | CONSULT ---
[facility] Psychiatric Consult - Data Date of interview: 05/20/19 Admission source: [facility] Identifying data: Patient is a 48 year old [place] female, , mother of two, domiciled, and self employed ( cleaning services). This is one of multiple admissions for patient. Patient admitted to for cocaine dependence. Patient is court mandated. Substance Abuse History: Smoking Cessation. Smoking history: Current some day smoker. Have you smoked in the past 12 months: Yes. Aproximately how many cigarettes per day: 2. Cigars Per Day: 0. Hx Chewing Tobacco Use: No. Initiated information on smoking cessation: Yes. 'Breaking Loose' booklet given : 05/19/19. - Substance & Tx. History. Hx Alcohol Use: No. Hx Substance Use: Yes. Substance Use Type: Cocaine. Hx Substance Use Treatment: Yes (suboxone). - Substances abused. Cocaine. Substance route: Inhalation. Frequency: 1- 3 times last 30 days. Amount used: $150. Age of first use: 26. Date of last use: 03/24/19 Medical History: Significant for history of Asthma, S/P surgery for Achalasia, S /P Ectopic , diminished peripheal vision to left eye Psychiatric History: Patient's first psychiatric contact was in her 20's at an outpatient clinic due to anxiety, depression, and difficulty focusing. She was diagnosed with Depression, ADHD, and anxiety with panic disorder. No medications were prescribed. Reports only receiving therapy at first. Reports noncompliance with treating her anxiety and depression until her early 30's. Since her 30's she reports medication adherence. Presently, she is receiving outpatient psychiatric care at [facility] ([facility]) and claims to be prescribed Wellbutrin 150mg XR + Adderall +Latuda 30mg daily + Abilify (unsure dose) + Remeron 7.5mg HS + Gabapentin 600mg TID + Buspar 10mg TID. Medications to be verified by calling pharmacy. Patient denies history of psychiatric hospitalizations and suicide attempt. At present patient reports feeeling anxious. Physical/Sexual Abuse/Trauma History: denies. Mental Status Exam - Mental Status Exam Alert and Oriented to: Time, Place, Person Patient Appearance: Well Groomed Mood: Euthymic Affect: Mood Congruent Patient Behavior: Cooperative Speech Pattern: Appropriate Voice Loudness: Normal Thought Process: Goal Oriented Thought Disorder: Not Present Hallucinations: Denies Suicidal Ideation: Denies Homicidal Ideation: Denies Insight/Judgement: Poor Sleep: Poorly Appetite: Fair Muscle strength/Tone: Normal Gait/Station: Normal Psychiatric Findings - Problem List ([place] 1, 2,3) (1) Alcohol dependence Current Visit: Yes Status: Acute (2) ADHD (attention deficit hyperactivity disorder) Current Visit: No Status: Chronic (3) Cocaine dependence Current Visit: Yes Status: Chronic Qualifiers: Substance use status: uncomplicated Qualified Code(s): F14.20 - Cocaine dependence, uncomplicated (4) Anxiety disorder Current Visit: Yes Status: Chronic (5) Nicotine dependence Current Visit: Yes Status: Chronic Qualifiers: Nicotine product type: cigarettes Substance use status: in withdrawal Qualified Code(s): F17.213 - Nicotine dependence, cigarettes, with withdrawal (6) Panic disorder Current Visit: Yes Status: Suspected (7) MDD (major depressive disorder) Current Visit: Yes Status: Chronic (8) Substance-induced sleep disorder Current Visit: Yes Status: Acute - Initial Treatment Plan Initial Treatment Plan: Psychoeducation provided. Rehab in progress. [facility] pharmacy called at [phone]. As per the pharmacist patient received the following medications on April 28: Wellbutrin 150mg XL + Gabapentin 600mg TID PRN+Buspar 10mg TID + Mirtazapine 7.5mg HS + Adderall 30mg BID. The following medications: Latuda 40mg + Abilify 10mg was received on Apr 09 from a different [facility] and no additional prescriptions were given to patient. Will order Wellbutrin 150mg Xl + Gabapentin 600mg TID + Buspar 10mg TID + Mirtazapine 7.5mg HS + Belsomra 10mg HS PRN. Benefits and side effects discussed. Verbal consent given.
[2019-05-20 11:51] LABS: HEMATOCRIT 29.4 % (32.4-45.2); HEMOGLOBIN 9.3 GM/dL (10.7-15.3); MCH 24.5 pg (25.7-33.7); MCHC 31.8 g/dl (32.0-36.0); MEAN CELL VOLUME 77.3 fl (80-96); MEAN PLT VOLUME 7.1 fl (7.5-11.1); PLATELET COUNT 321 K/MM3 (134-434); RDW 18.9 % (11.6-15.6); WHITE BLOOD COUNT 4.9 K/mm3 (4.0-10.0)
[2019-05-20 12:04] LABS: ALBUMIN 3.7 g/dl (3.4-5.0); BILIRUBIN,TOTAL 0.5 mg/dL (0.2-1); BLOOD UREA NITROGEN 14.7 mg/dL (7-18); CALCIUM 9.6 mg/dL (8.5-10.1); CREATININE 0.9 mg/dL (0.55-1.3); POTASSIUM 4.1 mmol/L (3.5-5.1); TOT PROT 6.9 g/dl (6.4-8.2)
[2019-05-20] MEDS ORDERED: PT OWN MED DRAWER 7, Y5N ONE ×4 (13:17→23:07)
--- NOTE | 2019-05-20 13:36 | PREP.REFER ---
HIV PrEP/PEP - PrEP HIV Risk Assessment When was your last HIV test?: One year ago-negative HIV Test offered: Accepted (will place order) Are you concerned about any sexual encounters past 6 months?: No Have you had a STI in the last 6 months?: No Have you shared needles or other equipment?: No (Patient denies any risk factors for HIV; she has not shared needles for several years.) Are you interested in daily medication to help prevent HIV?: No Recommendation: None at this time
[2019-05-20] MEDS ORDERED: FLU VACC QS2019-20(6MOS UP)/PF 60 MCG/0.5 ML SYRINGE IM ONE (13:42)
[2019-05-20] MEDS ORDERED: IBUPROFEN 600 MG TABLET (FP) PO PRN (13:46)
--- NOTE | 2019-05-20 13:48 | PN ---
[facility] Progress Note (SOAP) Subjective: Lower back pain Objective: 05/20/19 13:43 CBC, BMP 05/20/19 08:28 05/20/19 08:28 Vital Signs Period Temp Pulse Resp BP Sys/Jones Pulse Ox Last 24 Hr 97.8 F-99.1 F 99-114 16-20 124-127/81-84 P/E General: no apparent distress HEENTM: normocephalic, PERRLA Neck: supple Heart: s1 s2 Lungs: clear MSK: BACK-CVA tenderness, Full weight bearing, limited ROM r/t pain, steady gait Neuro: CN 2-12 intact. Assessment: Lower back pain 05/20/19 13:45 Plan: Lidoderm patch [place]-vega Flexeril 5mg TID, prn Increased motrin dose to 600mg every 4 hours PRN
[2019-05-20] MEDS: busPIRone HCL 10 MG TABLET (FP) PO SCH ×2 (14:00→21:19)
[2019-05-20] MEDS: GABAPENTIN 300 MG CAPSULE PO SCH ×2 (14:00→21:14)
--- NOTE | 2019-05-20 14:03 | PN ---
S Progress Note Note: HGB/HCT low. Asymptomatic. P/E: General: No apparent distress HEENTM: conjunctiva pale SKIN: mucous membranes pale Assessment: Anemia PLAN: Will start feosol. CBC, BMP 05/20/19 08:28 05/20/19 08:28
[2019-05-20] MEDS: LIDOCAINE 5% TOPICAL PATCH TP SCH (15:00)
[2019-05-20] MEDS: THIAMINE HCL 100 MG TABLET (FP) PO SCH (21:14)
[2019-05-20] MEDS: SUVOREXANT 10 MG TABLET PO PRN (21:19)
[2019-05-20] MEDS: FERROUS SO4 325 MG TABLET (FP) PO SCH (21:19)
[2019-05-20] MEDS: IBUPROFEN 600 MG TABLET (FP) PO PRN (21:19)
[2019-05-20] MEDS: CYCLOBENZAPRINE HCL 5 MG TABLET PO PRN (21:19)
[2019-05-20] MEDS: METHYL SALICYLATE/MENTHOL OINT 30 GM TUBE TP SCH (21:21)
[2019-05-20] MEDS: LIDOCAINE PATCH REMOVAL MC SCH (21:22)
[2019-05-20] MEDS: MIRTAZAPINE 15 MG TABLET (FP) PO SCH (21:22)
[2019-05-20] MEDS: ASCORBIC ACID 500 MG TABLET (FP) PO SCH (21:23)
[2019-05-21] MEDS ORDERED: PT OWN MED DRAWER 7, Y5N ONE ×4 (06:23→22:09)
[2019-05-21] MEDS: CYCLOBENZAPRINE HCL 5 MG TABLET PO PRN ×3 (06:34→22:02)
[2019-05-21] MEDS: GABAPENTIN 300 MG CAPSULE PO SCH ×3 (06:34→21:58)
[2019-05-21] MEDS: busPIRone HCL 10 MG TABLET (FP) PO SCH ×3 (06:34→22:02)
[2019-05-21] MEDS: LIDOCAINE 5% TOPICAL PATCH TP SCH (10:01)
[2019-05-21] MEDS: ASCORBIC ACID 500 MG TABLET (FP) PO SCH ×2 (10:02→22:03)
[2019-05-21] MEDS: BUPRENORPHINE/NALOXONE 4 MG/1 MG FILM PACKET SL SCH (10:02)
[2019-05-21] MEDS: FERROUS SO4 325 MG TABLET (FP) PO SCH ×2 (10:02→21:57)
[2019-05-21] MEDS: PANTOPRAZOLE 40 MG TABLET PO SCH (10:03)
[2019-05-21] MEDS: PRENATAL VITAMINS W/ FOLIC ACID TABLET (FP) PO SCH (10:03)
[2019-05-21] MEDS: P-EPHED 60MG/TRIPROLIDI 2.5MG TABLET PO PRN (10:04)
[2019-05-21] MEDS: METHYL SALICYLATE/MENTHOL OINT 30 GM TUBE TP SCH (10:05)
[2019-05-21] MEDS: IBUPROFEN 600 MG TABLET (FP) PO PRN ×2 (10:05→21:59)
[2019-05-21] MEDS: NICOTINE POLACRILEX 2 MG GUM BUC PRN (10:13)
[2019-05-21] MEDS ORDERED: FLU VACCINE QUAD 60 MCG/0.5 ML (MDV 19-20) IM ONE (12:00)
[2019-05-21] MEDS: THIAMINE HCL 100 MG TABLET (FP) PO SCH (21:57)
[2019-05-21] MEDS: MIRTAZAPINE 15 MG TABLET (FP) PO SCH (21:58)
[2019-05-21] MEDS: LIDOCAINE PATCH REMOVAL MC SCH (21:59)
[2019-05-21] MEDS: SUVOREXANT 10 MG TABLET PO PRN (22:02)
[2019-05-22] MEDS ORDERED: PT OWN MED DRAWER 7, Y5N ONE ×6 (02:35→19:31)
[2019-05-22] MEDS: GABAPENTIN 300 MG CAPSULE PO SCH ×3 (06:29→21:31)
[2019-05-22] MEDS: busPIRone HCL 10 MG TABLET (FP) PO SCH ×3 (06:30→21:33)
[2019-05-22] MEDS: CYCLOBENZAPRINE HCL 5 MG TABLET PO PRN ×3 (06:31→21:32)
[2019-05-22] MEDS: ASCORBIC ACID 500 MG TABLET (FP) PO SCH ×2 (09:40→21:32)
[2019-05-22] MEDS: LIDOCAINE 5% TOPICAL PATCH TP SCH (09:40)
[2019-05-22] MEDS: FERROUS SO4 325 MG TABLET (FP) PO SCH ×2 (09:40→21:32)
[2019-05-22] MEDS: PRENATAL VITAMINS W/ FOLIC ACID TABLET (FP) PO SCH (09:40)
[2019-05-22] MEDS: PANTOPRAZOLE 40 MG TABLET PO SCH (09:41)
[2019-05-22] MEDS: P-EPHED 60MG/TRIPROLIDI 2.5MG TABLET PO PRN (09:41)
[2019-05-22] MEDS: NICOTINE POLACRILEX 2 MG GUM BUC PRN (09:41)
[2019-05-22] MEDS: IBUPROFEN 600 MG TABLET (FP) PO PRN ×2 (09:42→21:34)
[2019-05-22] MEDS: BUPRENORPHINE/NALOXONE 4 MG/1 MG FILM PACKET SL SCH (09:43)
[2019-05-22] MEDS: METHYL SALICYLATE/MENTHOL OINT 30 GM TUBE TP SCH ×2 (09:44→21:58)
[2019-05-22] MEDS: MAGNESIUM HYDROX 2400MG/30ML ORAL SUSPENSION 30 ML CUP PO PRN (10:07)
[2019-05-22] MEDS: ACETAMINOPHEN 325 MG TABLET (FP) PO PRN (14:24)
[2019-05-22 16:45] LABS: EPI CELLS 7.8 /HPF (0-5/HPF); HYALINE CASTS 1 /lpf (0-8); PH,URINE 6.5 (5.0-8.0); URINE APPEARANCE CLEAR; URINE BACTERIA 75.3 /hpf (NEGATIVE); URINE BILIRUBIN NEGATIVE (NEGATIVE); URINE COLOR YELLOW; URINE GLUCOSE (UA) NEGATIVE (NEGATIVE); URINE KETONE NEGATIVE (NEGATIVE); URINE LEUK ESTERASE TRACE (NEGATIVE); URINE NITRITE NEGATIVE (NEGATIVE); URINE PROTEIN NEGATIVE (NEGATIVE); URINE RBC 1 /hpf (0-4); URINE UROBILINOGEN 0.2 mg/dL (0.2-1.0); URINE WBC 3 /hpf (0-5)
[2019-05-22] MEDS: SUVOREXANT 10 MG TABLET PO PRN (21:32)
[2019-05-22] MEDS: THIAMINE HCL 100 MG TABLET (FP) PO SCH (21:32)
[2019-05-22] MEDS: MIRTAZAPINE 15 MG TABLET (FP) PO SCH (21:33)
[2019-05-22] MEDS: LIDOCAINE PATCH REMOVAL MC SCH (21:58)
[2019-05-23] MEDS ORDERED: PT OWN MED DRAWER 7, Y5N ONE ×3 (04:06→14:42)
[2019-05-23] MEDS: GABAPENTIN 300 MG CAPSULE PO SCH ×3 (06:40→21:11)
[2019-05-23] MEDS: CYCLOBENZAPRINE HCL 5 MG TABLET PO PRN ×2 (06:40→14:43)
[2019-05-23] MEDS: busPIRone HCL 10 MG TABLET (FP) PO SCH ×3 (06:40→21:12)
[2019-05-23] MEDS: PANTOPRAZOLE 40 MG TABLET PO SCH (09:37)
[2019-05-23] MEDS: LIDOCAINE 5% TOPICAL PATCH TP SCH (09:37)
[2019-05-23] MEDS: PRENATAL VITAMINS W/ FOLIC ACID TABLET (FP) PO SCH (09:37)
[2019-05-23] MEDS: BUPRENORPHINE/NALOXONE 4 MG/1 MG FILM PACKET SL SCH (09:37)
[2019-05-23] MEDS: FERROUS SO4 325 MG TABLET (FP) PO SCH ×2 (09:37→21:12)
[2019-05-23] MEDS: ASCORBIC ACID 500 MG TABLET (FP) PO SCH ×2 (09:37→21:27)
[2019-05-23] MEDS: IBUPROFEN 600 MG TABLET (FP) PO PRN ×2 (09:40→21:12)
--- NOTE | 2019-05-23 15:53 | PN ---
[facility] Progress Note Note: Psychiatry Attending's note : Nurse called : Needs renewal order for suvorexant. Chart reviewed. Medication is confirmed. benefit specialist Evens Umaña's note : appreciated. No report of adverse effects from patient or clinicians. Belsomra 10 mg po hs prn. Resumed.
[2019-05-23] MEDS: MIRTAZAPINE 15 MG TABLET (FP) PO SCH (21:11)
[2019-05-23] MEDS: hydrOXYzine PAMOATE 25 MG CAPSULE (FP) PO PRN (21:12)
[2019-05-23] MEDS: THIAMINE HCL 100 MG TABLET (FP) PO SCH (21:13)
[2019-05-23] MEDS: SUVOREXANT 10 MG TABLET PO PRN (21:14)
[2019-05-23] MEDS: METHYL SALICYLATE/MENTHOL OINT 30 GM TUBE TP SCH (21:15)
[2019-05-23] MEDS: NICOTINE POLACRILEX 2 MG GUM BUC PRN (21:16)
[2019-05-23] MEDS: LIDOCAINE PATCH REMOVAL MC SCH (21:27)
[2019-05-24] MEDS ORDERED: PT OWN MED DRAWER 7, Y5N ONE ×3 (06:39→14:53)
[2019-05-24] MEDS: CYCLOBENZAPRINE HCL 5 MG TABLET PO PRN ×2 (06:44→21:14)
[2019-05-24] MEDS: busPIRone HCL 10 MG TABLET (FP) PO SCH ×3 (06:44→21:15)
[2019-05-24] MEDS: GABAPENTIN 300 MG CAPSULE PO SCH ×3 (06:44→21:15)
[2019-05-24] MEDS: hydrOXYzine PAMOATE 25 MG CAPSULE (FP) PO PRN ×3 (09:45→21:14)
[2019-05-24] MEDS: BUPRENORPHINE/NALOXONE 4 MG/1 MG FILM PACKET SL SCH (09:45)
[2019-05-24] MEDS: LIDOCAINE 5% TOPICAL PATCH TP SCH (09:45)
[2019-05-24] MEDS: IBUPROFEN 600 MG TABLET (FP) PO PRN (09:45)
[2019-05-24] MEDS: PRENATAL VITAMINS W/ FOLIC ACID TABLET (FP) PO SCH (09:46)
[2019-05-24] MEDS: FERROUS SO4 325 MG TABLET (FP) PO SCH ×2 (09:46→21:15)
[2019-05-24] MEDS: PANTOPRAZOLE 40 MG TABLET PO SCH (09:46)
[2019-05-24] MEDS: ASCORBIC ACID 500 MG TABLET (FP) PO SCH ×2 (09:50→21:15)
[2019-05-24] MEDS: MAGNESIUM HYDROX 2400MG/30ML ORAL SUSPENSION 30 ML CUP PO PRN (15:15)
[2019-05-24] MEDS: THIAMINE HCL 100 MG TABLET (FP) PO SCH (21:13)
[2019-05-24] MEDS: MIRTAZAPINE 15 MG TABLET (FP) PO SCH (21:15)
[2019-05-24] MEDS: SUVOREXANT 10 MG TABLET PO PRN (21:16)
[2019-05-24] MEDS: LIDOCAINE PATCH REMOVAL MC SCH (21:16)
[2019-05-24] MEDS: METHYL SALICYLATE/MENTHOL OINT 30 GM TUBE TP SCH (21:19)
[2019-05-25] MEDS: CYCLOBENZAPRINE HCL 5 MG TABLET PO PRN ×3 (06:34→21:23)
[2019-05-25] MEDS: GABAPENTIN 300 MG CAPSULE PO SCH ×3 (06:34→21:23)
[2019-05-25] MEDS: busPIRone HCL 10 MG TABLET (FP) PO SCH ×3 (06:34→21:25)
[2019-05-25] MEDS: LIDOCAINE 5% TOPICAL PATCH TP SCH (09:33)
[2019-05-25] MEDS: FERROUS SO4 325 MG TABLET (FP) PO SCH ×2 (09:33→21:23)
[2019-05-25] MEDS: PANTOPRAZOLE 40 MG TABLET PO SCH (09:34)
[2019-05-25] MEDS: hydrOXYzine PAMOATE 25 MG CAPSULE (FP) PO PRN (09:34)
[2019-05-25] MEDS: PRENATAL VITAMINS W/ FOLIC ACID TABLET (FP) PO SCH (09:34)
[2019-05-25] MEDS: BUPRENORPHINE/NALOXONE 4 MG/1 MG FILM PACKET SL SCH (09:34)
[2019-05-25] MEDS: ASCORBIC ACID 500 MG TABLET (FP) PO SCH ×2 (09:35→21:27)
[2019-05-25] MEDS: IBUPROFEN 600 MG TABLET (FP) PO PRN (09:35)
[2019-05-25] MEDS: NICOTINE POLACRILEX 2 MG GUM BUC PRN (09:37)
[2019-05-25] MEDS ORDERED: COLLOIDAL OATMEAL 1 BAR EACH TP PRN (09:50)
[2019-05-25] MEDS ORDERED: MELATONIN 5 MG TABLETS PO PRN (09:52)
[2019-05-25] MEDS: LORATADINE 10 MG TABLET PO SCH (10:21)
--- NOTE | 2019-05-25 12:41 | PN ---
[facility] Progress Note Note: Patient referred for c/o urinary frequency. Patient states " I feel like I have to push my urine out". Patient denies fever, burning upon urination and pelvic pain. Laboratory Tests 05/20/19 05/20/19 05/20/19 08:28 08:28 08:28 WBC 4.9 RBC 3.80 Hgb 9.3 L Hct 29.4 L MCV 77.3 L MCH 24.5 L MCHC 31.8 L RDW 18.9 H Plt Count 321 MPV 7.1 L Sodium 137 Potassium 4.1 Chloride 105 Carbon Dioxide 24 Anion Gap 8 BUN 14.7 Creatinine 0.9 Est GFR (CKD-EPI)AfAm 88.25 Est GFR (CKD-EPI)NonAf 76.14 POC Glucometer Random Glucose 169 H Calcium 9.6 Total Bilirubin 0.5 AST 23 ALT 28 Alkaline Phosphatase 85 Total Protein 6.9 Albumin 3.7 Urine Color Urine Appearance Urine pH Ur Specific [place] Urine Protein Urine Glucose (UA) Urine Ketones Urine Blood Urine Nitrite Urine Bilirubin Urine Urobilinogen Ur Leukocyte Esterase Urine WBC (Auto) Urine RBC (Auto) Urine Casts (Auto) U Epithel Cells (Auto) Urine Bacteria (Auto) RPR Titer Nonreactive HIV 1&2 Ag/Ab, 4th Gen 05/21/19 05/22/19 05/23/19 08:00 08:00 06:52 WBC RBC Hgb Hct MCV MCH MCHC RDW Plt Count MPV Sodium Potassium Chloride Carbon Dioxide Anion Gap BUN Creatinine Est GFR (CKD-EPI)AfAm Est GFR (CKD-EPI)NonAf POC Glucometer 133 Random Glucose Calcium Total Bilirubin AST ALT Alkaline Phosphatase Total Protein Albumin Urine Color Yellow Urine Appearance Clear Urine pH 6.5 Ur Specific [place] 1.015 Urine Protein Negative Urine Glucose (UA) Negative Urine Ketones Negative Urine Blood Negative Urine Nitrite Negative Urine Bilirubin Negative Urine Urobilinogen 0.2 Ur Leukocyte Esterase Trace Urine WBC (Auto) 3 Urine RBC (Auto) 1 Urine Casts (Auto) 1 U Epithel Cells (Auto) 7.8 Urine Bacteria (Auto) 75.3 RPR Titer HIV 1&2 Ag/Ab, 4th Gen Non reactive 05/24/19 05/25/19 06:43 06:33 WBC RBC Hgb Hct MCV MCH MCHC RDW Plt Count MPV Sodium Potassium Chloride Carbon Dioxide Anion Gap BUN Creatinine Est GFR (CKD-EPI)AfAm Est GFR (CKD-EPI)NonAf POC Glucometer 108 88 Random Glucose Calcium Total Bilirubin AST ALT Alkaline Phosphatase Total Protein Albumin Urine Color Urine Appearance Urine pH Ur Specific [place] Urine Protein Urine Glucose (UA) Urine Ketones Urine Blood Urine Nitrite Urine Bilirubin Urine Urobilinogen Ur Leukocyte Esterase Urine WBC (Auto) Urine RBC (Auto) Urine Casts (Auto) U Epithel Cells (Auto) Urine Bacteria (Auto) RPR Titer HIV 1&2 Ag/Ab, 4th Gen Vital Signs Temperature 97.9 F 05/25/19 06:47 Pulse Rate 89 05/25/19 06:47 Respiratory Rate 18 05/25/19 06:47 Blood Pressure 101/67 05/25/19 06:47 O2 Sat by Pulse Oximetry (%) PE: alert and oriented x 3 skin warm and dry +perrla, eoms intact b gi nt, nd no pelvic tenderness ext full rom, amb ad jorge luis A/P: urinary frequency will repeat UA encourage fluids monitor clinically
[2019-05-25] MEDS ORDERED: PT OWN MED DRAWER 7, Y5N ONE ×5 (13:34→23:32)
--- NOTE | 2019-05-25 14:00 | PN ---
S Progress Note Note: Lb review for BGM CMP Sodium 137 mmol/L (136-145) 05/20/19 08:28 Potassium 4.1 mmol/L (3.5-5.1) 05/20/19 08:28 Chloride 105 mmol/L (98-107) 05/20/19 08:28 Carbon Dioxide 24 mmol/L (21-32) 05/20/19 08:28 Anion Gap 8 MMOL/L (8-16) 05/20/19 08:28 BUN 14.7 mg/dL (7-18) 05/20/19 08:28 Creatinine 0.9 mg/dL (0.55-1.3) 05/20/19 08:28 Est GFR (CKD-EPI)AfAm 88.25 05/20/19 08:28 Est GFR (CKD-EPI)NonAf 76.14 05/20/19 08:28 POC Glucometer 88 UNITS (80-120) 05/25/19 06:33 Random Glucose 169 mg/dL (74-106) H 05/20/19 08:28 Calcium 9.6 mg/dL (8.5-10.1) 05/20/19 08:28 Total Bilirubin 0.5 mg/dL (0.2-1) 05/20/19 08:28 AST 23 U/L (15-37) 05/20/19 08:28 ALT 28 U/L (13-61) 05/20/19 08:28 Alkaline Phosphatase 85 U/L (45-117) 05/20/19 08:28 Total Protein 6.9 g/dl (6.4-8.2) 05/20/19 08:28 Albumin 3.7 g/dl (3.4-5.0) 05/20/19 08:28 Last FBS was 88 mg/dl
[2019-05-25] MEDS: THIAMINE HCL 100 MG TABLET (FP) PO SCH (21:23)
[2019-05-25] MEDS: SUVOREXANT 10 MG TABLET PO PRN (21:23)
[2019-05-25] MEDS: LIDOCAINE PATCH REMOVAL MC SCH (21:26)
[2019-05-25] MEDS: METHYL SALICYLATE/MENTHOL OINT 30 GM TUBE TP SCH (21:26)
[2019-05-25] MEDS: MIRTAZAPINE 15 MG TABLET (FP) PO SCH (21:26)
[2019-05-26] MEDS: IBUPROFEN 600 MG TABLET (FP) PO PRN ×2 (06:35→21:34)
[2019-05-26] MEDS: GABAPENTIN 300 MG CAPSULE PO SCH ×3 (06:35→21:36)
[2019-05-26] MEDS: CYCLOBENZAPRINE HCL 5 MG TABLET PO PRN ×2 (06:35→21:38)
[2019-05-26] MEDS: busPIRone HCL 10 MG TABLET (FP) PO SCH ×3 (06:35→21:37)
[2019-05-26] MEDS ORDERED: PT OWN MED DRAWER 7, Y5N ONE ×3 (08:55→21:02)
[2019-05-26] MEDS: hydrOXYzine PAMOATE 25 MG CAPSULE (FP) PO PRN ×2 (10:00→21:33)
[2019-05-26] MEDS: PRENATAL VITAMINS W/ FOLIC ACID TABLET (FP) PO SCH (10:00)
[2019-05-26] MEDS: NICOTINE POLACRILEX 2 MG GUM BUC PRN (10:00)
[2019-05-26] MEDS: PANTOPRAZOLE 40 MG TABLET PO SCH (10:01)
[2019-05-26] MEDS: BUPRENORPHINE/NALOXONE 4 MG/1 MG FILM PACKET SL SCH (10:01)
[2019-05-26] MEDS: FERROUS SO4 325 MG TABLET (FP) PO SCH ×2 (10:01→21:33)
[2019-05-26] MEDS: LIDOCAINE 5% TOPICAL PATCH TP SCH (10:01)
[2019-05-26] MEDS: LORATADINE 10 MG TABLET PO SCH (10:01)
[2019-05-26] MEDS: ASCORBIC ACID 500 MG TABLET (FP) PO SCH ×2 (10:01→21:39)
[2019-05-26 12:12] LABS: HEMATOCRIT 29.1 % (32.4-45.2); MCH 24.6 pg (25.7-33.7); MCHC 31.1 g/dl (32.0-36.0); MEAN CELL VOLUME 79.2 fl (80-96); MEAN PLT VOLUME 7.3 fl (7.5-11.1); PLATELET COUNT 330 K/MM3 (134-434); RBC 3.67 M/mm3 (3.60-5.2); RDW 19.3 % (11.6-15.6); WHITE BLOOD COUNT 5.1 K/mm3 (4.0-10.0)
[2019-05-26 12:21] LABS: PH,URINE 7.5 (5.0-8.0); URINE APPEARANCE CLEAR; URINE BILIRUBIN NEGATIVE (NEGATIVE); URINE COLOR YELLOW; URINE GLUCOSE (UA) NEGATIVE (NEGATIVE); URINE KETONE NEGATIVE (NEGATIVE); URINE LEUK ESTERASE NEGATIVE (NEGATIVE); URINE NITRITE NEGATIVE (NEGATIVE); URINE PROTEIN NEGATIVE (NEGATIVE); URINE UROBILINOGEN 0.2 mg/dL (0.2-1.0)
[2019-05-26] MEDS: ACETAMINOPHEN 325 MG TABLET (FP) PO PRN (17:32)
[2019-05-26] MEDS: THIAMINE HCL 100 MG TABLET (FP) PO SCH (21:33)
[2019-05-26] MEDS: SUVOREXANT 10 MG TABLET PO PRN (21:34)
[2019-05-26] MEDS: LIDOCAINE PATCH REMOVAL MC SCH (21:35)
[2019-05-26] MEDS: METHYL SALICYLATE/MENTHOL OINT 30 GM TUBE TP SCH (21:36)
[2019-05-26] MEDS: MIRTAZAPINE 15 MG TABLET (FP) PO SCH (21:36)
[2019-05-27] MEDS ORDERED: PT OWN MED DRAWER 7, Y5N ONE ×3 (03:59→22:32)
[2019-05-27] MEDS: GABAPENTIN 300 MG CAPSULE PO SCH ×3 (06:48→21:33)
[2019-05-27] MEDS: busPIRone HCL 10 MG TABLET (FP) PO SCH ×3 (06:48→21:34)
[2019-05-27] MEDS: CYCLOBENZAPRINE HCL 5 MG TABLET PO PRN ×2 (06:48→21:33)
[2019-05-27] MEDS: LIDOCAINE 5% TOPICAL PATCH TP SCH (09:51)
[2019-05-27] MEDS: PRENATAL VITAMINS W/ FOLIC ACID TABLET (FP) PO SCH (09:51)
[2019-05-27] MEDS: LORATADINE 10 MG TABLET PO SCH (09:51)
[2019-05-27] MEDS: FERROUS SO4 325 MG TABLET (FP) PO SCH ×2 (09:51→21:33)
[2019-05-27] MEDS: PANTOPRAZOLE 40 MG TABLET PO SCH (09:51)
[2019-05-27] MEDS: NICOTINE POLACRILEX 2 MG GUM BUC PRN (09:52)
[2019-05-27] MEDS: hydrOXYzine PAMOATE 25 MG CAPSULE (FP) PO PRN ×3 (09:52→21:33)
[2019-05-27] MEDS: ASCORBIC ACID 500 MG TABLET (FP) PO SCH ×2 (09:52→21:36)
[2019-05-27] MEDS: IBUPROFEN 600 MG TABLET (FP) PO PRN ×2 (09:53→21:33)
[2019-05-27] MEDS: BUPRENORPHINE/NALOXONE 4 MG/1 MG FILM PACKET SL SCH (10:18)
--- NOTE | 2019-05-27 10:33 | PN ---
S Progress Note (SOAP) Subjective: patient with FS x 3 days, trending downward to normal. She is concerned that she may be diabetic. Also had previous c/o difficulty urinating and U/A was drawn HGB/HCT was low, she was started on feosol and vitamin c and CBC was repeated. Denies oral, rectal, vaginal bleeding. Reports a hx of anemia in the past w/o further treatment. Objective: 05/27/19 10:26 CBC, BMP 05/26/19 08:10 05/20/19 08:28 Urine Test Results Urine Color Yellow 05/26/19 09:00 Urine Appearance Clear 05/26/19 09:00 Urine pH 7.5 (5.0-8.0) 05/26/19 09:00 Ur Specific [place] 1.012 (1.010-1.035) 05/26/19 09:00 Urine Protein Negative (NEGATIVE) 05/26/19 09:00 Urine Glucose (UA) Negative (NEGATIVE) 05/26/19 09:00 Urine Ketones Negative (NEGATIVE) 05/26/19 09:00 Urine Blood Negative (NEGATIVE) 05/26/19 09:00 Urine Nitrite Negative (NEGATIVE) 05/26/19 09:00 Urine Bilirubin Negative (NEGATIVE) 05/26/19 09:00 Ur Leukocyte Esterase Negative (NEGATIVE) 05/26/19 09:00 05/27/19 10:28 General: No apparent distress HEENTM: normocephalic, PERRLA, mucus membranes-pink, moist Lungs: clear Heart: s1 s2 ABD: soft, non-tender, non-distended. Skin: pale Assessment: Elevated random blood glucose on admission and x 1 day after difficulty voiding Anemia 05/27/19 10:33 Plan: Elevated BGM: hgb a1c ordered-Patient will be here until 06/15/19; Difficulty voiding: resolved, U/A is negative Anemia; continue feosol and vitamin c; advised patient to f/u with pcp upon discharge.
[2019-05-27] MEDS: ACETAMINOPHEN 325 MG TABLET (FP) PO PRN (15:32)
[2019-05-27] MEDS: THIAMINE HCL 100 MG TABLET (FP) PO SCH (21:33)
[2019-05-27] MEDS: LIDOCAINE PATCH REMOVAL MC SCH (21:34)
[2019-05-27] MEDS: METHYL SALICYLATE/MENTHOL OINT 30 GM TUBE TP SCH ×2 (21:36→21:37)
[2019-05-27] MEDS: MIRTAZAPINE 15 MG TABLET (FP) PO SCH (21:36)
[2019-05-28] MEDS: busPIRone HCL 10 MG TABLET (FP) PO SCH ×3 (06:28→21:36)
[2019-05-28] MEDS: GABAPENTIN 300 MG CAPSULE PO SCH ×3 (06:28→21:34)
[2019-05-28] MEDS: CYCLOBENZAPRINE HCL 5 MG TABLET PO PRN ×2 (06:28→21:33)
[2019-05-28] MEDS: LORATADINE 10 MG TABLET PO SCH (09:58)
[2019-05-28] MEDS: P-EPHED 60MG/TRIPROLIDI 2.5MG TABLET PO PRN (10:01)
[2019-05-28] MEDS: NICOTINE POLACRILEX 2 MG GUM BUC PRN (10:01)
[2019-05-28] MEDS: hydrOXYzine PAMOATE 25 MG CAPSULE (FP) PO PRN ×2 (10:01→21:34)
[2019-05-28] MEDS: IBUPROFEN 600 MG TABLET (FP) PO PRN ×2 (10:01→21:33)
[2019-05-28] MEDS: PRENATAL VITAMINS W/ FOLIC ACID TABLET (FP) PO SCH (10:02)
[2019-05-28] MEDS: PANTOPRAZOLE 40 MG TABLET PO SCH (10:02)
[2019-05-28] MEDS: FERROUS SO4 325 MG TABLET (FP) PO SCH ×2 (10:02→21:33)
[2019-05-28] MEDS: ASCORBIC ACID 500 MG TABLET (FP) PO SCH ×2 (10:03→21:37)
[2019-05-28] MEDS: LIDOCAINE 5% TOPICAL PATCH TP SCH (10:03)
[2019-05-28] MEDS: BUPRENORPHINE/NALOXONE 4 MG/1 MG FILM PACKET SL SCH (10:03)
[2019-05-28] MEDS ORDERED: PT OWN MED DRAWER 7, Y5N ONE ×4 (13:14→23:03)
[2019-05-28] MEDS: ACETAMINOPHEN 325 MG TABLET (FP) PO PRN (13:52)
[2019-05-28] MEDS: THIAMINE HCL 100 MG TABLET (FP) PO SCH (21:33)
[2019-05-28] MEDS: SUVOREXANT 10 MG TABLET PO PRN (21:34)
[2019-05-28] MEDS: MAGNESIUM HYDROX 2400MG/30ML ORAL SUSPENSION 30 ML CUP PO PRN (21:35)
[2019-05-28] MEDS: LIDOCAINE PATCH REMOVAL MC SCH (21:35)
[2019-05-28] MEDS: METHYL SALICYLATE/MENTHOL OINT 30 GM TUBE TP SCH (21:36)
[2019-05-28] MEDS: MIRTAZAPINE 15 MG TABLET (FP) PO SCH (21:37)
[2019-05-29] MEDS: busPIRone HCL 10 MG TABLET (FP) PO SCH ×3 (06:03→21:23)
[2019-05-29] MEDS: hydrOXYzine PAMOATE 25 MG CAPSULE (FP) PO PRN ×3 (06:03→21:27)
[2019-05-29] MEDS: GABAPENTIN 300 MG CAPSULE PO SCH ×3 (06:03→21:23)
[2019-05-29] MEDS: CYCLOBENZAPRINE HCL 5 MG TABLET PO PRN ×2 (06:04→21:27)
[2019-05-29] MEDS ORDERED: PT OWN MED DRAWER 7, Y5N ONE ×2 (08:01→11:43)
[2019-05-29] MEDS: PRENATAL VITAMINS W/ FOLIC ACID TABLET (FP) PO SCH (09:52)
[2019-05-29] MEDS: BUPRENORPHINE/NALOXONE 4 MG/1 MG FILM PACKET SL SCH (09:52)
[2019-05-29] MEDS: IBUPROFEN 600 MG TABLET (FP) PO PRN ×3 (09:53→21:27)
[2019-05-29] MEDS: P-EPHED 60MG/TRIPROLIDI 2.5MG TABLET PO PRN (09:54)
[2019-05-29] MEDS: NICOTINE POLACRILEX 2 MG GUM BUC PRN (09:54)
[2019-05-29] MEDS: LIDOCAINE 5% TOPICAL PATCH TP SCH (09:55)
[2019-05-29] MEDS: FERROUS SO4 325 MG TABLET (FP) PO SCH ×2 (09:56→21:23)
[2019-05-29] MEDS: LORATADINE 10 MG TABLET PO SCH (09:56)
[2019-05-29] MEDS: PANTOPRAZOLE 40 MG TABLET PO SCH (09:56)
[2019-05-29] MEDS: ASCORBIC ACID 500 MG TABLET (FP) PO SCH ×2 (09:56→21:24)
[2019-05-29] MEDS: MIRTAZAPINE 15 MG TABLET (FP) PO SCH (21:22)
[2019-05-29] MEDS: THIAMINE HCL 100 MG TABLET (FP) PO SCH (21:23)
[2019-05-29] MEDS: METHYL SALICYLATE/MENTHOL OINT 30 GM TUBE TP SCH (21:24)
[2019-05-29] MEDS: LIDOCAINE PATCH REMOVAL MC SCH (21:25)
[2019-05-29] MEDS: SUVOREXANT 10 MG TABLET PO PRN (21:27)
[2019-05-29] MEDS: MAGNESIUM HYDROX 2400MG/30ML ORAL SUSPENSION 30 ML CUP PO PRN (21:30)
[2019-05-30] MEDS: IBUPROFEN 600 MG TABLET (FP) PO PRN ×3 (06:37→21:49)
[2019-05-30] MEDS: busPIRone HCL 10 MG TABLET (FP) PO SCH ×3 (06:37→21:51)
[2019-05-30] MEDS: CYCLOBENZAPRINE HCL 5 MG TABLET PO PRN ×2 (06:37→21:52)
[2019-05-30] MEDS: GABAPENTIN 300 MG CAPSULE PO SCH ×3 (06:37→21:50)
[2019-05-30] MEDS: NICOTINE POLACRILEX 2 MG GUM BUC PRN (09:49)
[2019-05-30] MEDS: BUPRENORPHINE/NALOXONE 4 MG/1 MG FILM PACKET SL SCH (09:49)
[2019-05-30] MEDS: LIDOCAINE 5% TOPICAL PATCH TP SCH (09:49)
[2019-05-30] MEDS: PRENATAL VITAMINS W/ FOLIC ACID TABLET (FP) PO SCH (09:49)
[2019-05-30] MEDS: hydrOXYzine PAMOATE 25 MG CAPSULE (FP) PO PRN (09:50)
[2019-05-30] MEDS: PANTOPRAZOLE 40 MG TABLET PO SCH (09:50)
[2019-05-30] MEDS: LORATADINE 10 MG TABLET PO SCH (09:50)
[2019-05-30] MEDS: FERROUS SO4 325 MG TABLET (FP) PO SCH ×2 (09:50→21:49)
[2019-05-30] MEDS: ASCORBIC ACID 500 MG TABLET (FP) PO SCH ×2 (10:01→22:04)
[2019-05-30] MEDS ORDERED: PT OWN MED DRAWER 7, Y5N ONE ×3 (14:04→21:13)
--- NOTE | 2019-05-30 19:19 | PN ---
S Progress Note Note: Psychiatry Attending's note : Chart reviewed. Medication is confirmed. No report of adverse effects. Belsomra 10 mg po hs prn. Renewal done. Order entered.
[2019-05-30] MEDS: SUVOREXANT 10 MG TABLET PO PRN (21:48)
[2019-05-30] MEDS: MIRTAZAPINE 15 MG TABLET (FP) PO SCH (21:49)
[2019-05-30] MEDS: THIAMINE HCL 100 MG TABLET (FP) PO SCH (21:50)
[2019-05-30] MEDS: METHYL SALICYLATE/MENTHOL OINT 30 GM TUBE TP SCH (21:52)
[2019-05-30] MEDS: LIDOCAINE PATCH REMOVAL MC SCH (21:53)
[2019-05-31] MEDS ORDERED: PT OWN MED DRAWER 7, Y5N ONE ×5 (00:21→22:13)
[2019-05-31] MEDS: busPIRone HCL 10 MG TABLET (FP) PO SCH ×3 (06:43→21:23)
[2019-05-31] MEDS: GABAPENTIN 300 MG CAPSULE PO SCH ×3 (06:43→21:23)
[2019-05-31] MEDS: IBUPROFEN 600 MG TABLET (FP) PO PRN ×2 (06:44→12:42)
[2019-05-31] MEDS: CYCLOBENZAPRINE HCL 5 MG TABLET PO PRN ×3 (06:44→21:23)
[2019-05-31] MEDS: BUPRENORPHINE/NALOXONE 4 MG/1 MG FILM PACKET SL SCH (09:42)
[2019-05-31] MEDS: LIDOCAINE 5% TOPICAL PATCH TP SCH (09:42)
[2019-05-31] MEDS: NICOTINE POLACRILEX 2 MG GUM BUC PRN (09:42)
[2019-05-31] MEDS: LORATADINE 10 MG TABLET PO SCH (09:43)
[2019-05-31] MEDS: PRENATAL VITAMINS W/ FOLIC ACID TABLET (FP) PO SCH (09:43)
[2019-05-31] MEDS: hydrOXYzine PAMOATE 25 MG CAPSULE (FP) PO PRN ×2 (09:43→21:23)
[2019-05-31] MEDS: PANTOPRAZOLE 40 MG TABLET PO SCH (09:43)
[2019-05-31] MEDS: FERROUS SO4 325 MG TABLET (FP) PO SCH ×2 (09:43→21:23)
[2019-05-31] MEDS: ASCORBIC ACID 500 MG TABLET (FP) PO SCH ×2 (09:43→21:26)
[2019-05-31] MEDS: THIAMINE HCL 100 MG TABLET (FP) PO SCH (21:22)
[2019-05-31] MEDS: SUVOREXANT 10 MG TABLET PO PRN (21:23)
[2019-05-31] MEDS: LIDOCAINE PATCH REMOVAL MC SCH (21:25)
[2019-05-31] MEDS: METHYL SALICYLATE/MENTHOL OINT 30 GM TUBE TP SCH (21:25)
[2019-05-31] MEDS: MIRTAZAPINE 15 MG TABLET (FP) PO SCH (21:25)
[2019-05-31] MEDS ORDERED: SUVOREXANT 10 MG TABLET PO PRN (22:00)
[2019-06-01] MEDS: GABAPENTIN 300 MG CAPSULE PO SCH ×3 (06:25→21:44)
[2019-06-01] MEDS: CYCLOBENZAPRINE HCL 5 MG TABLET PO PRN ×3 (06:25→21:43)
[2019-06-01] MEDS: busPIRone HCL 10 MG TABLET (FP) PO SCH ×3 (06:25→21:46)
[2019-06-01] MEDS: LORATADINE 10 MG TABLET PO SCH (09:57)
[2019-06-01] MEDS: FERROUS SO4 325 MG TABLET (FP) PO SCH ×2 (09:58→21:43)
[2019-06-01] MEDS: PRENATAL VITAMINS W/ FOLIC ACID TABLET (FP) PO SCH (09:58)
[2019-06-01] MEDS: LIDOCAINE 5% TOPICAL PATCH TP SCH (09:58)
[2019-06-01] MEDS: PANTOPRAZOLE 40 MG TABLET PO SCH (09:58)
[2019-06-01] MEDS: ASCORBIC ACID 500 MG TABLET (FP) PO SCH ×2 (09:59→21:47)
[2019-06-01] MEDS: BUPRENORPHINE/NALOXONE 4 MG/1 MG FILM PACKET SL SCH (09:59)
[2019-06-01] MEDS: hydrOXYzine PAMOATE 25 MG CAPSULE (FP) PO PRN ×2 (10:01→21:43)
[2019-06-01] MEDS ORDERED: PT OWN MED DRAWER 7, Y5N ONE ×4 (10:22→22:18)
[2019-06-01] MEDS: THIAMINE HCL 100 MG TABLET (FP) PO SCH (21:43)
[2019-06-01] MEDS: LIDOCAINE PATCH REMOVAL MC SCH (21:45)
[2019-06-01] MEDS: IBUPROFEN 600 MG TABLET (FP) PO PRN (21:45)
[2019-06-01] MEDS: METHYL SALICYLATE/MENTHOL OINT 30 GM TUBE TP SCH (21:46)
[2019-06-01] MEDS: MIRTAZAPINE 15 MG TABLET (FP) PO SCH (21:47)
[2019-06-01] MEDS: SUVOREXANT 10 MG TABLET PO PRN (21:47)
[2019-06-02] MEDS ORDERED: PT OWN MED DRAWER 7, Y5N ONE ×3 (05:52→21:38)
[2019-06-02] MEDS: busPIRone HCL 10 MG TABLET (FP) PO SCH ×3 (06:10→21:32)
[2019-06-02] MEDS: GABAPENTIN 300 MG CAPSULE PO SCH ×3 (06:10→21:32)
[2019-06-02] MEDS: CYCLOBENZAPRINE HCL 5 MG TABLET PO PRN ×3 (06:12→21:38)
[2019-06-02] MEDS: PRENATAL VITAMINS W/ FOLIC ACID TABLET (FP) PO SCH (09:51)
[2019-06-02] MEDS: LIDOCAINE 5% TOPICAL PATCH TP SCH (09:52)
[2019-06-02] MEDS: ASCORBIC ACID 500 MG TABLET (FP) PO SCH ×2 (09:54→21:37)
[2019-06-02] MEDS: LORATADINE 10 MG TABLET PO SCH (09:54)
[2019-06-02] MEDS: PANTOPRAZOLE 40 MG TABLET PO SCH (09:54)
[2019-06-02] MEDS: FERROUS SO4 325 MG TABLET (FP) PO SCH ×2 (09:54→21:40)
[2019-06-02] MEDS: IBUPROFEN 600 MG TABLET (FP) PO PRN ×2 (09:56→21:38)
[2019-06-02] MEDS: hydrOXYzine PAMOATE 25 MG CAPSULE (FP) PO PRN ×2 (09:56→21:39)
[2019-06-02] MEDS: NICOTINE POLACRILEX 2 MG GUM BUC PRN ×2 (09:57→21:39)
[2019-06-02] MEDS: BUPRENORPHINE/NALOXONE 4 MG/1 MG FILM PACKET SL SCH (10:52)
[2019-06-02] MEDS: MIRTAZAPINE 15 MG TABLET (FP) PO SCH (21:32)
[2019-06-02] MEDS: THIAMINE HCL 100 MG TABLET (FP) PO SCH (21:32)
[2019-06-02] MEDS: SUVOREXANT 10 MG TABLET PO PRN (21:35)
[2019-06-02] MEDS: METHYL SALICYLATE/MENTHOL OINT 30 GM TUBE TP SCH (21:37)
[2019-06-02] MEDS: LIDOCAINE PATCH REMOVAL MC SCH (21:44)
[2019-06-03] MEDS: IBUPROFEN 600 MG TABLET (FP) PO PRN ×2 (06:24→21:23)
[2019-06-03] MEDS: GABAPENTIN 300 MG CAPSULE PO SCH ×3 (06:24→21:18)
[2019-06-03] MEDS: busPIRone HCL 10 MG TABLET (FP) PO SCH ×3 (06:24→21:19)
[2019-06-03] MEDS: CYCLOBENZAPRINE HCL 5 MG TABLET PO PRN ×3 (06:24→21:23)
[2019-06-03] MEDS: PANTOPRAZOLE 40 MG TABLET PO SCH (09:51)
[2019-06-03] MEDS: LORATADINE 10 MG TABLET PO SCH (09:51)
[2019-06-03] MEDS: PRENATAL VITAMINS W/ FOLIC ACID TABLET (FP) PO SCH (09:51)
[2019-06-03] MEDS: NICOTINE POLACRILEX 2 MG GUM BUC PRN (09:51)
[2019-06-03] MEDS: FERROUS SO4 325 MG TABLET (FP) PO SCH ×2 (09:51→21:19)
[2019-06-03] MEDS: ASCORBIC ACID 500 MG TABLET (FP) PO SCH ×2 (09:51→21:46)
[2019-06-03] MEDS: LIDOCAINE 5% TOPICAL PATCH TP SCH (09:52)
[2019-06-03] MEDS: hydrOXYzine PAMOATE 25 MG CAPSULE (FP) PO PRN ×2 (09:52→21:23)
[2019-06-03] MEDS: BUPRENORPHINE/NALOXONE 4 MG/1 MG FILM PACKET SL SCH (09:52)
[2019-06-03] MEDS ORDERED: PT OWN MED DRAWER 7, Y5N ONE ×3 (11:34→21:47)
[2019-06-03] MEDS: METHYL SALICYLATE/MENTHOL OINT 30 GM TUBE TP SCH (21:17)
[2019-06-03] MEDS: MIRTAZAPINE 15 MG TABLET (FP) PO SCH (21:18)
[2019-06-03] MEDS: THIAMINE HCL 100 MG TABLET (FP) PO SCH (21:18)
[2019-06-03] MEDS: SUVOREXANT 10 MG TABLET PO PRN (21:22)
[2019-06-03] MEDS: LIDOCAINE PATCH REMOVAL MC SCH (21:44)
[2019-06-04] MEDS ORDERED: PT OWN MED DRAWER 7, Y5N ONE ×5 (06:11→23:49)
[2019-06-04] MEDS: CYCLOBENZAPRINE HCL 5 MG TABLET PO PRN ×2 (06:20→17:28)
[2019-06-04] MEDS: busPIRone HCL 10 MG TABLET (FP) PO SCH ×3 (06:20→21:52)
[2019-06-04] MEDS: GABAPENTIN 300 MG CAPSULE PO SCH ×3 (06:20→21:50)
[2019-06-04] MEDS: BUPRENORPHINE/NALOXONE 4 MG/1 MG FILM PACKET SL SCH (09:50)
[2019-06-04] MEDS: NICOTINE POLACRILEX 2 MG GUM BUC PRN (09:51)
[2019-06-04] MEDS: FERROUS SO4 325 MG TABLET (FP) PO SCH ×2 (09:51→21:54)
[2019-06-04] MEDS: LIDOCAINE 5% TOPICAL PATCH TP SCH (09:51)
[2019-06-04] MEDS: ASCORBIC ACID 500 MG TABLET (FP) PO SCH ×2 (09:51→21:53)
[2019-06-04] MEDS: PANTOPRAZOLE 40 MG TABLET PO SCH (09:51)
[2019-06-04] MEDS: PRENATAL VITAMINS W/ FOLIC ACID TABLET (FP) PO SCH (09:51)
[2019-06-04] MEDS: LORATADINE 10 MG TABLET PO SCH (09:51)
[2019-06-04] MEDS: hydrOXYzine PAMOATE 25 MG CAPSULE (FP) PO PRN (09:51)
--- NOTE | 2019-06-04 11:32 | PN ---
[facility] Progress Note Note: Patient requests to resume [id number] mg which was prescribed to her by her psychiatrist for the first time on March. Resume Latuda 40 mg/day
[2019-06-04] MEDS: LURASIDONE HCL 40 MG TABLET PO SCH (12:20)
[2019-06-04] MEDS: IBUPROFEN 600 MG TABLET (FP) PO PRN (17:28)
[2019-06-04] MEDS: THIAMINE HCL 100 MG TABLET (FP) PO SCH (21:49)
[2019-06-04] MEDS: SUVOREXANT 10 MG TABLET PO PRN (21:50)
[2019-06-04] MEDS: MIRTAZAPINE 15 MG TABLET (FP) PO SCH (21:53)
[2019-06-04] MEDS: METHYL SALICYLATE/MENTHOL OINT 30 GM TUBE TP SCH (21:54)
[2019-06-04] MEDS: LIDOCAINE PATCH REMOVAL MC SCH (21:54)
[2019-06-05] MEDS ORDERED: PT OWN MED DRAWER 7, Y5N ONE ×3 (05:41→22:30)
[2019-06-05] MEDS: busPIRone HCL 10 MG TABLET (FP) PO SCH ×3 (06:39→21:56)
[2019-06-05] MEDS: IBUPROFEN 600 MG TABLET (FP) PO PRN (06:39)
[2019-06-05] MEDS: hydrOXYzine PAMOATE 25 MG CAPSULE (FP) PO PRN ×2 (06:39→14:17)
[2019-06-05] MEDS: GABAPENTIN 300 MG CAPSULE PO SCH ×3 (06:39→21:55)
[2019-06-05] MEDS: CYCLOBENZAPRINE HCL 5 MG TABLET PO PRN ×2 (10:00→21:55)
[2019-06-05] MEDS: LIDOCAINE 5% TOPICAL PATCH TP SCH (10:00)
[2019-06-05] MEDS: BUPRENORPHINE/NALOXONE 4 MG/1 MG FILM PACKET SL SCH (10:00)
[2019-06-05] MEDS: MAGNESIUM HYDROX 2400MG/30ML ORAL SUSPENSION 30 ML CUP PO PRN (10:01)
[2019-06-05] MEDS: FERROUS SO4 325 MG TABLET (FP) PO SCH ×2 (10:01→21:55)
[2019-06-05] MEDS: PRENATAL VITAMINS W/ FOLIC ACID TABLET (FP) PO SCH (10:01)
[2019-06-05] MEDS: ASCORBIC ACID 500 MG TABLET (FP) PO SCH ×2 (10:01→21:57)
[2019-06-05] MEDS: LORATADINE 10 MG TABLET PO SCH (10:01)
[2019-06-05] MEDS: LURASIDONE HCL 40 MG TABLET PO SCH (10:02)
[2019-06-05] MEDS: PANTOPRAZOLE 40 MG TABLET PO SCH (10:02)
[2019-06-05] MEDS: NICOTINE POLACRILEX 2 MG GUM BUC PRN ×2 (10:03→14:18)
[2019-06-05] MEDS: SUVOREXANT 10 MG TABLET PO PRN (21:55)
[2019-06-05] MEDS: THIAMINE HCL 100 MG TABLET (FP) PO SCH (21:55)
[2019-06-05] MEDS: MIRTAZAPINE 15 MG TABLET (FP) PO SCH (21:56)
[2019-06-05] MEDS: LIDOCAINE PATCH REMOVAL MC SCH (21:58)
[2019-06-05] MEDS: METHYL SALICYLATE/MENTHOL OINT 30 GM TUBE TP SCH (21:58)
[2019-06-06] MEDS ORDERED: PT OWN MED DRAWER 7, Y5N ONE ×3 (06:10→12:16)
[2019-06-06] MEDS: GABAPENTIN 300 MG CAPSULE PO SCH ×3 (06:26→22:14)
[2019-06-06] MEDS: CYCLOBENZAPRINE HCL 5 MG TABLET PO PRN ×2 (06:27→22:13)
[2019-06-06] MEDS: busPIRone HCL 10 MG TABLET (FP) PO SCH ×3 (06:27→22:18)
[2019-06-06] MEDS: LORATADINE 10 MG TABLET PO SCH (09:34)
[2019-06-06] MEDS: FERROUS SO4 325 MG TABLET (FP) PO SCH ×2 (09:34→22:13)
[2019-06-06] MEDS: LURASIDONE HCL 40 MG TABLET PO SCH (09:35)
[2019-06-06] MEDS: LIDOCAINE 5% TOPICAL PATCH TP SCH (09:35)
[2019-06-06] MEDS: PRENATAL VITAMINS W/ FOLIC ACID TABLET (FP) PO SCH (09:35)
[2019-06-06] MEDS: PANTOPRAZOLE 40 MG TABLET PO SCH (09:35)
[2019-06-06] MEDS: BUPRENORPHINE/NALOXONE 4 MG/1 MG FILM PACKET SL SCH (09:35)
[2019-06-06] MEDS: ASCORBIC ACID 500 MG TABLET (FP) PO SCH ×2 (09:36→22:14)
[2019-06-06] MEDS: hydrOXYzine PAMOATE 25 MG CAPSULE (FP) PO PRN ×2 (09:37→22:16)
[2019-06-06] MEDS: NICOTINE POLACRILEX 2 MG GUM BUC PRN (09:37)
[2019-06-06] MEDS: IBUPROFEN 600 MG TABLET (FP) PO PRN ×2 (09:38→22:13)
[2019-06-06] MEDS: SUVOREXANT 10 MG TABLET PO PRN (22:12)
[2019-06-06] MEDS: MIRTAZAPINE 15 MG TABLET (FP) PO SCH (22:15)
[2019-06-06] MEDS: METHYL SALICYLATE/MENTHOL OINT 30 GM TUBE TP SCH (22:16)
[2019-06-06] MEDS: THIAMINE HCL 100 MG TABLET (FP) PO SCH (23:19)
[2019-06-06] MEDS: LIDOCAINE PATCH REMOVAL MC SCH (23:19)
[2019-06-07] MEDS ORDERED: PT OWN MED DRAWER 7, Y5N ONE ×6 (05:45→22:10)
[2019-06-07] MEDS: busPIRone HCL 10 MG TABLET (FP) PO SCH ×3 (06:10→21:10)
[2019-06-07] MEDS: GABAPENTIN 300 MG CAPSULE PO SCH ×3 (06:10→21:07)
[2019-06-07] MEDS: CYCLOBENZAPRINE HCL 5 MG TABLET PO PRN ×2 (06:11→21:11)
[2019-06-07] MEDS: FERROUS SO4 325 MG TABLET (FP) PO SCH ×2 (09:45→21:07)
[2019-06-07] MEDS: LORATADINE 10 MG TABLET PO SCH (09:45)
[2019-06-07] MEDS: LURASIDONE HCL 40 MG TABLET PO SCH (09:45)
[2019-06-07] MEDS: hydrOXYzine PAMOATE 25 MG CAPSULE (FP) PO PRN ×2 (09:45→21:11)
[2019-06-07] MEDS: PANTOPRAZOLE 40 MG TABLET PO SCH (09:45)
[2019-06-07] MEDS: PRENATAL VITAMINS W/ FOLIC ACID TABLET (FP) PO SCH (09:45)
[2019-06-07] MEDS: ASCORBIC ACID 500 MG TABLET (FP) PO SCH ×2 (09:46→21:13)
[2019-06-07] MEDS: LIDOCAINE 5% TOPICAL PATCH TP SCH (09:46)
[2019-06-07] MEDS: BUPRENORPHINE/NALOXONE 4 MG/1 MG FILM PACKET SL SCH (09:46)
--- NOTE | 2019-06-07 11:59 | PN ---
[facility] Progress Note Note: Psychiatric nurse practitioner note: Belsomra 10mg renewed X3 days. Verbal consent given.
[2019-06-07] MEDS: MIRTAZAPINE 15 MG TABLET (FP) PO SCH (21:07)
[2019-06-07] MEDS: METHYL SALICYLATE/MENTHOL OINT 30 GM TUBE TP SCH (21:07)
[2019-06-07] MEDS: LIDOCAINE PATCH REMOVAL MC SCH (21:08)
[2019-06-07] MEDS: THIAMINE HCL 100 MG TABLET (FP) PO SCH (21:08)
[2019-06-07] MEDS: SUVOREXANT 10 MG TABLET PO PRN (21:11)
[2019-06-07] MEDS: MAGNESIUM HYDROX 2400MG/30ML ORAL SUSPENSION 30 ML CUP PO PRN (21:11)
[2019-06-07] MEDS: IBUPROFEN 600 MG TABLET (FP) PO PRN (21:11)
[2019-06-08] MEDS ORDERED: PT OWN MED DRAWER 7, Y5N ONE ×4 (05:34→21:21)
[2019-06-08] MEDS: GABAPENTIN 300 MG CAPSULE PO SCH ×3 (06:14→21:16)
[2019-06-08] MEDS: CYCLOBENZAPRINE HCL 5 MG TABLET PO PRN ×2 (06:14→19:45)
[2019-06-08] MEDS: guaiFENesin 200 MG/10 ML 10 ML UNIT-DOSE CUPS PO PRN ×2 (06:15→21:19)
[2019-06-08] MEDS: busPIRone HCL 10 MG TABLET (FP) PO SCH ×3 (06:15→21:16)
[2019-06-08] MEDS: ACETAMINOPHEN 325 MG TABLET (FP) PO PRN (06:15)
[2019-06-08] MEDS: hydrOXYzine PAMOATE 25 MG CAPSULE (FP) PO PRN ×2 (09:20→21:16)
[2019-06-08] MEDS: IBUPROFEN 600 MG TABLET (FP) PO PRN ×2 (09:20→19:45)
[2019-06-08] MEDS: BUPRENORPHINE/NALOXONE 4 MG/1 MG FILM PACKET SL SCH (09:21)
[2019-06-08] MEDS: PRENATAL VITAMINS W/ FOLIC ACID TABLET (FP) PO SCH (09:22)
[2019-06-08] MEDS: LURASIDONE HCL 40 MG TABLET PO SCH (09:22)
[2019-06-08] MEDS: LORATADINE 10 MG TABLET PO SCH (09:22)
[2019-06-08] MEDS: PANTOPRAZOLE 40 MG TABLET PO SCH (09:22)
[2019-06-08] MEDS: FERROUS SO4 325 MG TABLET (FP) PO SCH ×2 (09:22→21:16)
[2019-06-08] MEDS: LIDOCAINE 5% TOPICAL PATCH TP SCH (09:23)
[2019-06-08] MEDS: ASCORBIC ACID 500 MG TABLET (FP) PO SCH ×2 (09:25→21:20)
--- NOTE | 2019-06-08 09:42 | PN ---
[facility] Progress Note (SOAP) Subjective: patient with fever overnight of 102, now at 99.2. Patient believes that she may have regurgitated food and that it went down to her lung rather than her stomach. non-productive cough, malaise. Denies chest pain with coughing, SOB. Able to swallow, eat, & drink. Has PMHx of achalasia and has had aspiration pneumonia in the past as a result of food backing up in her esophagus. Objective: 06/08/19 09:46 Vital Signs Period Temp Pulse Resp BP Sys/Jones Pulse Ox Last 24 Hr 99.1 F-102.8 F 99-114 16-18 94-103/56-66 General: no apparent distress, looks fatigued HEENTM: throat-clear, mouth-clear, Normocephalic, PERRLA Neck: supple, trachea in good position Lungs: clear to auscultation, all lung bradley, respirations easy and unlabored, good chest expansion noted Heart: s1 s2 ABD: +BS Assessment: Fever of unknown origin; possibly aspiration pneumonia 06/08/19 09:48 06/08/19 09:53 Plan: Continue Motrin Continue cough medicine Increase fluids Start Amoxicillin CXR Instructed to eat slowly and carefully (pt has been educated) Will continue to monitor.
[2019-06-08] MEDS ORDERED: AMOXICILLIN 250 MG CAPSULE PO SCH (10:00)
[2019-06-08] MEDS: AMOXICILLIN - 500 MG, AMOXICILLIN - 250 MG PO SCH ×2 (10:55→21:21)
[2019-06-08] MEDS: THIAMINE HCL 100 MG TABLET (FP) PO SCH (21:16)
[2019-06-08] MEDS: LIDOCAINE PATCH REMOVAL MC SCH (21:17)
[2019-06-08] MEDS: METHYL SALICYLATE/MENTHOL OINT 30 GM TUBE TP SCH (21:17)
[2019-06-08] MEDS: SUVOREXANT 10 MG TABLET PO PRN (21:22)
[2019-06-08] MEDS: MIRTAZAPINE 15 MG TABLET (FP) PO SCH (21:53)
[2019-06-09] MEDS: hydrOXYzine PAMOATE 25 MG CAPSULE (FP) PO PRN ×2 (06:42→21:23)
[2019-06-09] MEDS: GABAPENTIN 300 MG CAPSULE PO SCH ×3 (06:42→21:23)
[2019-06-09] MEDS: busPIRone HCL 10 MG TABLET (FP) PO SCH ×3 (06:42→21:24)
[2019-06-09] MEDS ORDERED: PT OWN MED DRAWER 7, Y5N ONE ×7 (09:33→22:25)
[2019-06-09] MEDS: BUPRENORPHINE/NALOXONE 4 MG/1 MG FILM PACKET SL SCH (10:01)
[2019-06-09] MEDS: LURASIDONE HCL 40 MG TABLET PO SCH (10:02)
[2019-06-09] MEDS: FERROUS SO4 325 MG TABLET (FP) PO SCH ×2 (10:02→21:23)
[2019-06-09] MEDS: AMOXICILLIN - 500 MG, AMOXICILLIN - 250 MG PO SCH ×2 (10:02→21:25)
[2019-06-09] MEDS: CYCLOBENZAPRINE HCL 5 MG TABLET PO PRN (10:02)
[2019-06-09] MEDS: LORATADINE 10 MG TABLET PO SCH (10:03)
[2019-06-09] MEDS: PRENATAL VITAMINS W/ FOLIC ACID TABLET (FP) PO SCH (10:03)
[2019-06-09] MEDS: ASCORBIC ACID 500 MG TABLET (FP) PO SCH ×2 (10:03→21:26)
[2019-06-09] MEDS: PANTOPRAZOLE 40 MG TABLET PO SCH (10:03)
[2019-06-09] MEDS: IBUPROFEN 600 MG TABLET (FP) PO PRN (10:03)
[2019-06-09] MEDS: LIDOCAINE 5% TOPICAL PATCH TP SCH (10:04)
[2019-06-09] MEDS: guaiFENesin 200 MG/10 ML 10 ML UNIT-DOSE CUPS PO PRN (10:06)
[2019-06-09] MEDS: NICOTINE POLACRILEX 2 MG GUM BUC PRN ×2 (10:06→14:18)
--- NOTE | 2019-06-09 11:14 | PN ---
[facility] Progress Note Note: Pt is afebrile. CXR Result: Vital Signs - 24 hr 06/08/19 06/08/19 06/09/19 13:55 22:00 00:30 Temperature 98.8 F 97 F L Pulse Rate 103 H 84 Respiratory 18 18 17 Rate Blood Pressure 91/61 134/91 06/09/19 06/09/19 03:30 07:09 Temperature 97.9 F Pulse Rate 87 Respiratory 18 18 Rate Blood Pressure 93/61 CXR Result:Normal heart/aorta/sondra. Some course lung changes with some atelectasis or very early infiltrates in the lingula. Continue Augmentin therapy increase po fluids
[2019-06-09 12:12] LABS: HEMATOCRIT 32.5 % (32.4-45.2); HEMOGLOBIN 10.3 GM/dL (10.7-15.3); MCH 25.9 pg (25.7-33.7); MCHC 31.6 g/dl (32.0-36.0); MEAN CELL VOLUME 82.2 fl (80-96); MEAN PLT VOLUME 7.7 fl (7.5-11.1); PLATELET COUNT 275 K/MM3 (134-434); RBC 3.96 M/mm3 (3.60-5.2); WHITE BLOOD COUNT 9.6 K/mm3 (4.0-10.0)
[2019-06-09] MEDS: ACETAMINOPHEN 325 MG TABLET (FP) PO PRN (14:18)
[2019-06-09] MEDS: THIAMINE HCL 100 MG TABLET (FP) PO SCH (21:23)
[2019-06-09] MEDS: METHYL SALICYLATE/MENTHOL OINT 30 GM TUBE TP SCH (21:24)
[2019-06-09] MEDS: MIRTAZAPINE 15 MG TABLET (FP) PO SCH (21:27)
[2019-06-09] MEDS: LIDOCAINE PATCH REMOVAL MC SCH (21:27)
[2019-06-09] MEDS: SUVOREXANT 10 MG TABLET PO PRN (21:28)
[2019-06-10] MEDS ORDERED: PT OWN MED DRAWER 7, Y5N ONE ×3 (06:07→12:19)
[2019-06-10] MEDS: busPIRone HCL 10 MG TABLET (FP) PO SCH ×3 (06:33→21:40)
[2019-06-10] MEDS: GABAPENTIN 300 MG CAPSULE PO SCH ×3 (06:33→21:38)
[2019-06-10] MEDS: CYCLOBENZAPRINE HCL 5 MG TABLET PO PRN ×2 (06:33→19:53)
[2019-06-10] MEDS: IBUPROFEN 600 MG TABLET (FP) PO PRN ×2 (09:48→19:53)
[2019-06-10] MEDS: hydrOXYzine PAMOATE 25 MG CAPSULE (FP) PO PRN ×2 (09:48→21:39)
[2019-06-10] MEDS: NICOTINE POLACRILEX 2 MG GUM BUC PRN (09:49)
[2019-06-10] MEDS: AMOXICILLIN - 500 MG, AMOXICILLIN - 250 MG PO SCH ×2 (09:49→21:41)
[2019-06-10] MEDS: LORATADINE 10 MG TABLET PO SCH (09:50)
[2019-06-10] MEDS: FERROUS SO4 325 MG TABLET (FP) PO SCH ×2 (09:50→21:39)
[2019-06-10] MEDS: PANTOPRAZOLE 40 MG TABLET PO SCH (09:50)
[2019-06-10] MEDS: PRENATAL VITAMINS W/ FOLIC ACID TABLET (FP) PO SCH (09:50)
[2019-06-10] MEDS: ASCORBIC ACID 500 MG TABLET (FP) PO SCH ×2 (09:50→21:42)
[2019-06-10] MEDS: LIDOCAINE 5% TOPICAL PATCH TP SCH (09:51)
[2019-06-10] MEDS: BUPRENORPHINE/NALOXONE 4 MG/1 MG FILM PACKET SL SCH (09:51)
[2019-06-10] MEDS: LURASIDONE HCL 40 MG TABLET PO SCH (09:51)
[2019-06-10] MEDS: MIRTAZAPINE 15 MG TABLET (FP) PO SCH (21:39)
[2019-06-10] MEDS: THIAMINE HCL 100 MG TABLET (FP) PO SCH (21:39)
[2019-06-10] MEDS: LIDOCAINE PATCH REMOVAL MC SCH (21:40)
[2019-06-10] MEDS: METHYL SALICYLATE/MENTHOL OINT 30 GM TUBE TP SCH (21:42)
[2019-06-10] MEDS: SUVOREXANT 10 MG TABLET PO PRN (21:44)
[2019-06-11] MEDS ORDERED: PT OWN MED DRAWER 7, Y5N ONE ×5 (06:28→21:40)
[2019-06-11] MEDS: GABAPENTIN 300 MG CAPSULE PO SCH ×3 (06:40→21:24)
[2019-06-11] MEDS: CYCLOBENZAPRINE HCL 5 MG TABLET PO PRN ×2 (06:40→20:54)
[2019-06-11] MEDS: busPIRone HCL 10 MG TABLET (FP) PO SCH ×3 (06:40→21:25)
[2019-06-11] MEDS: AMOXICILLIN - 500 MG, AMOXICILLIN - 250 MG PO SCH ×2 (09:50→21:23)
[2019-06-11] MEDS: PANTOPRAZOLE 40 MG TABLET PO SCH (09:50)
[2019-06-11] MEDS: ASCORBIC ACID 500 MG TABLET (FP) PO SCH ×2 (09:50→21:26)
[2019-06-11] MEDS: hydrOXYzine PAMOATE 25 MG CAPSULE (FP) PO PRN ×2 (09:50→21:24)
[2019-06-11] MEDS: FERROUS SO4 325 MG TABLET (FP) PO SCH ×2 (09:50→21:24)
[2019-06-11] MEDS: PRENATAL VITAMINS W/ FOLIC ACID TABLET (FP) PO SCH (09:50)
[2019-06-11] MEDS: IBUPROFEN 600 MG TABLET (FP) PO PRN ×3 (09:50→20:54)
[2019-06-11] MEDS: LORATADINE 10 MG TABLET PO SCH (09:50)
[2019-06-11] MEDS: LIDOCAINE 5% TOPICAL PATCH TP SCH (09:52)
[2019-06-11] MEDS: LURASIDONE HCL 40 MG TABLET PO SCH (09:54)
[2019-06-11] MEDS ORDERED: BUPRENORPHINE/NALOXONE 4 MG/1 MG FILM PACKET SL ONE (10:40)
--- NOTE | 2019-06-11 13:47 | PN ---
[facility] Progress Note Note: According to nursing- pt is complaining of depression- MH consult placed
[2019-06-11] MEDS: THIAMINE HCL 100 MG TABLET (FP) PO SCH (21:24)
[2019-06-11] MEDS: LIDOCAINE PATCH REMOVAL MC SCH (21:26)
[2019-06-11] MEDS: MIRTAZAPINE 15 MG TABLET (FP) PO SCH (21:26)
[2019-06-11] MEDS: SUVOREXANT 10 MG TABLET PO PRN (21:27)
[2019-06-11] MEDS: METHYL SALICYLATE/MENTHOL OINT 30 GM TUBE TP SCH (21:27)
[2019-06-12] MEDS: CYCLOBENZAPRINE HCL 5 MG TABLET PO PRN ×2 (06:26→21:17)
[2019-06-12] MEDS: GABAPENTIN 300 MG CAPSULE PO SCH ×3 (06:26→21:16)
[2019-06-12] MEDS: busPIRone HCL 10 MG TABLET (FP) PO SCH ×3 (06:26→21:16)
[2019-06-12] MEDS: AMOXICILLIN - 500 MG, AMOXICILLIN - 250 MG PO SCH ×2 (09:36→21:15)
[2019-06-12] MEDS: BUPRENORPHINE/NALOXONE 4 MG/1 MG FILM PACKET SL SCH (09:36)
[2019-06-12] MEDS: LURASIDONE HCL 40 MG TABLET PO SCH (09:36)
[2019-06-12] MEDS: LIDOCAINE 5% TOPICAL PATCH TP SCH (09:36)
[2019-06-12] MEDS: LORATADINE 10 MG TABLET PO SCH (09:37)
[2019-06-12] MEDS: FERROUS SO4 325 MG TABLET (FP) PO SCH ×2 (09:37→21:16)
[2019-06-12] MEDS: PRENATAL VITAMINS W/ FOLIC ACID TABLET (FP) PO SCH (09:37)
[2019-06-12] MEDS: ASCORBIC ACID 500 MG TABLET (FP) PO SCH ×2 (09:37→21:17)
[2019-06-12] MEDS: PANTOPRAZOLE 40 MG TABLET PO SCH (09:37)
[2019-06-12] MEDS: IBUPROFEN 600 MG TABLET (FP) PO PRN ×2 (09:38→21:18)
[2019-06-12] MEDS: hydrOXYzine PAMOATE 25 MG CAPSULE (FP) PO PRN ×2 (09:38→22:41)
[2019-06-12] MEDS ORDERED: PT OWN MED DRAWER 7, Y5N ONE ×3 (11:56→19:50)
--- NOTE | 2019-06-12 14:19 | PN ---
Psychiatric Progress Note Vital Signs: Vital Signs Period Temp Pulse Resp BP Sys/Jones Pulse Ox Last 24 Hr 98.2 F 72 18-18 115/74 Date of Session: 06/12/19 Chief Complaint:: " I still cannot sleep at night. Nothing seems to work." HPI: Day of rehabilitation. Patient reports her hospitalization as uneventful with the exception for complaint of refractory insomnia. ROS: Unremarkable. Patient remains visible on the unit. Ambulatory. Cognitively intact. Current Medications: Active Medications Generic Name Dose Route Start Last Admin Trade Name Freq PRN Reason Stop Dose Admin Acetaminophen 650 mg 05/19/19 19:20 06/09/19 14:18 Tylenol - PO 650 mg Q6H PRN Administration FEVER Al Hydroxide/Mg Hydroxide 30 ml 05/19/19 19:20 Mylanta Oral Suspension - PO Q6H PRN DYSPEPSIA Amoxicillin 500 mg/ 750 mg 06/08/19 10:00 06/12/19 09:36 Amoxicillin 250 mg PO 750 mg BID KATERIN Administration Ascorbic Acid 500 mg 05/20/19 22:00 06/12/19 09:37 Vitamin C - PO 500 mg BID KATERIN Administration Buprenorphine/Naloxone 1 each 06/12/19 10:00 06/12/19 09:36 Suboxone 4 Mg/1 Mg Film Packet SL 06/18/19 09:59 1 each DAILY KATERIN Administration Bupropion HCl 150 mg 05/21/19 10:00 06/12/19 09:37 Wellbutrin Xl - PO 150 mg DAILY KATERIN Administration Buspirone HCl 10 mg 05/20/19 14:00 06/12/19 13:32 Buspar - PO 10 mg TID KATERIN Administration Colloidal Oatmeal 1 applic 05/25/19 09:50 05/25/19 10:21 Aveeno Soap - TP 1 applic DAILY PRN Administration HYGEINE Cyclobenzaprine HCl 5 mg 05/20/19 13:30 06/12/19 06:26 Cyclobenzaprine Hcl PO 5 mg TID PRN Administration BACK PAIN Eucalyptus/Menthol/Phenol/Sorbitol 1 each 05/19/19 19:20 Cepastat Lozenge - MM Q4H PRN SORE THROAT Ferrous Sulfate 325 mg 05/20/19 22:00 06/12/19 09:37 Feosol - PO 325 mg BID KATERIN Administration Gabapentin 600 mg 05/20/19 14:00 06/12/19 13:32 Neurontin - PO 600 mg TID KATERIN Administration Guaifenesin 10 ml 05/19/19 19:20 06/09/19 10:06 Robitussin - PO 10 ml Q6H PRN Administration COUGH Hydroxyzine Pamoate 25 mg 05/19/19 19:20 06/12/19 09:38 Vistaril - PO 25 mg Q6H PRN Administration ANXIETY Ibuprofen 600 mg 05/20/19 13:47 06/12/19 09:38 Motrin - PO 600 mg Q4H PRN Administration PAIN LEVEL 4 - 6 Lidocaine 1 patch 05/20/19 13:30 06/12/19 09:36 Lidoderm Patch - TP 1 patch DAILY KATERIN Administration Loperamide HCl 4 mg 05/19/19 19:20 Imodium - PO Q6H PRN DIARRHEA Loratadine 10 mg 05/25/19 10:00 06/12/19 09:37 Claritin - PO 10 mg DAILY KATERIN Administration Lurasidone HCl 40 mg 06/04/19 11:30 06/12/19 09:36 Latuda - PO 40 mg DAILY KATERIN Administration Magnesium Citrate 300 ml 05/19/19 19:20 Citroma - PO Q48H PRN CONSTIPATION Magnesium Hydroxide 30 ml 05/19/19 19:20 06/07/19 21:11 Milk Of Magnesia - PO 30 ml DAILY PRN Administration CONSTIPATION Methyl Salicylate 1 applic 05/22/19 22:00 06/11/19 21:27 Lowell-Craig - TP 1 applic HS KATERIN Administration Miscellaneous 1 each 05/20/19 22:00 06/11/19 21:26 Lidoderm Patch Removal MC 1 each DAILY@2200 KATERIN Administration Nicotine Polacrilex 2 mg 05/19/19 19:20 06/10/19 09:49 Nicorette Gum - BUC 2 mg Q2H PRN Administration NICOTINE REPLACEMENT RX Pantoprazole Sodium 40 mg 05/20/19 10:00 06/12/19 09:37 Protonix - PO 40 mg DAILY KATERIN Administration Multivit/Folic Acid/Iron 1 tab 05/20/19 10:00 06/12/19 09:37 Vitamins (Sjr) - PO 1 tab DAILY KATERIN Administration Pseudoephedrine/Triprolidine 1 combo 05/19/19 19:20 05/29/19 09:54 Actifed - PO 1 combo TID PRN Administration NASAL CONGESTION Suvorexant 10 mg 06/10/19 22:00 06/11/19 21:27 Belsomra PO 10 mg HS PRN Administration INSOMNIA Thiamine HCl 100 mg 05/19/19 22:00 06/11/19 21:24 Vitamin B1 - PO 100 mg HS KATERIN Administration Medication(s) Change(s): No changes. Mirtazapine dose is optimized to 15 mg po hs. Side effects/benefits discussed with patient. Ms Hebert is in agreement with this plan of care. Gave her informed consent (verbal) to MD. Current Side Effect: No Lab tests ordered: No Lab tests reviewed: Yes Provider note:: Chart reviewed. Psychiatric consult of 05/20/19 by YUNG Powers : read and appreciated. Medications revisited. Patient is interviewed in the presence of nurse Mary Cross. Ms Hebert reports significant improvement of dysphoria since started on lurazidone. " I don't feel as depressed as before. This medication is working." On the other hand, she continues to experience frequent awakenings at night and more difficulty to return to sleep. " I feel so tired during the day because I get no rest at night." Principles of sleep hygiene are discussed with the patient. Titration of mirtazapine in progress (now raised to 15 mg/hs). In the meantime, the patient 's mental status remains stable. See MSE report for details. Ms Hebert is maintaining good progress and functioning at her baseline. Total face to face time:: 25 Mental Status Exam - Mental Status Exam Alert and Oriented to: Time, Place, Person Cognitive Function: Good Patient Appearance: Well Groomed Mood: Anxious, Hopeful Affect: Appropriate, Normal Range Patient Behavior: Fatigued (due to lack of sleep, according to patient), Appropriate, Cooperative Speech Pattern: Clear, Appropriate Voice Loudness: Normal Thought Process: Intact, Goal Oriented Thought Disorder: Not Present Hallucinations: Denies Suicidal Ideation: Denies Homicidal Ideation: Denies Insight/Judgement: Fair Sleep: Poorly, Difficulty falling asleep Appetite: Good Gait/Station: Normal Psychiatric Treatment Plan - Problem List (1) Insomnia Current Visit: Yes Comment: . (2) Alcohol dependence Current Visit: Yes Comment: . (3) Cocaine dependence Current Visit: Yes Qualifiers: Substance use status: uncomplicated Qualified Code(s): F14.20 - Cocaine dependence, uncomplicated Comment: . (4) Nicotine dependence Current Visit: Yes Qualifiers: Nicotine product type: cigarettes Substance use status: in withdrawal Qualified Code(s): F17.213 - Nicotine dependence, cigarettes, with withdrawal Comment: . (5) MDD (major depressive disorder) Current Visit: Yes Comment: . (6) Anxiety disorder Current Visit: Yes Comment: . (7) ADHD (attention deficit hyperactivity disorder) Current Visit: Yes Comment: .By history.
[2019-06-12] MEDS: METHYL SALICYLATE/MENTHOL OINT 30 GM TUBE TP SCH (21:15)
[2019-06-12] MEDS: LIDOCAINE PATCH REMOVAL MC SCH (21:16)
[2019-06-12] MEDS: THIAMINE HCL 100 MG TABLET (FP) PO SCH (21:17)
[2019-06-12] MEDS: MIRTAZAPINE 15 MG TABLET (FP) PO SCH (21:17)
[2019-06-12] MEDS: SUVOREXANT 10 MG TABLET PO PRN (21:18)
[2019-06-13] MEDS: CYCLOBENZAPRINE HCL 5 MG TABLET PO PRN ×2 (06:57→21:26)
[2019-06-13] MEDS: GABAPENTIN 300 MG CAPSULE PO SCH ×3 (06:57→21:26)
[2019-06-13] MEDS: busPIRone HCL 10 MG TABLET (FP) PO SCH ×3 (06:57→21:27)
[2019-06-13] MEDS: BUPRENORPHINE/NALOXONE 4 MG/1 MG FILM PACKET SL SCH (09:53)
[2019-06-13] MEDS: PANTOPRAZOLE 40 MG TABLET PO SCH (09:53)
[2019-06-13] MEDS: FERROUS SO4 325 MG TABLET (FP) PO SCH ×2 (09:53→21:26)
[2019-06-13] MEDS: LORATADINE 10 MG TABLET PO SCH (09:53)
[2019-06-13] MEDS: PRENATAL VITAMINS W/ FOLIC ACID TABLET (FP) PO SCH (09:54)
[2019-06-13] MEDS: LIDOCAINE 5% TOPICAL PATCH TP SCH (09:54)
[2019-06-13] MEDS ORDERED: PT OWN MED DRAWER 7, Y5N ONE ×4 (09:56→22:04)
[2019-06-13] MEDS: ASCORBIC ACID 500 MG TABLET (FP) PO SCH ×2 (09:57→21:27)
[2019-06-13] MEDS: AMOXICILLIN - 500 MG, AMOXICILLIN - 250 MG PO SCH ×2 (09:58→21:30)
[2019-06-13] MEDS: hydrOXYzine PAMOATE 25 MG CAPSULE (FP) PO PRN ×2 (10:00→21:28)
[2019-06-13] MEDS: NICOTINE POLACRILEX 2 MG GUM BUC PRN ×2 (10:00→13:36)
[2019-06-13] MEDS: IBUPROFEN 600 MG TABLET (FP) PO PRN ×2 (10:00→21:26)
[2019-06-13] MEDS: LURASIDONE HCL 40 MG TABLET PO SCH (10:02)
[2019-06-13] MEDS: MIRTAZAPINE 15 MG TABLET (FP) PO SCH (21:26)
[2019-06-13] MEDS: THIAMINE HCL 100 MG TABLET (FP) PO SCH (21:26)
[2019-06-13] MEDS: LIDOCAINE PATCH REMOVAL MC SCH (21:29)
[2019-06-13] MEDS: METHYL SALICYLATE/MENTHOL OINT 30 GM TUBE TP SCH (21:29)
[2019-06-13] MEDS: SUVOREXANT 10 MG TABLET PO PRN (21:31)
[2019-06-14] MEDS: GABAPENTIN 300 MG CAPSULE PO SCH ×3 (06:39→21:15)
[2019-06-14] MEDS: CYCLOBENZAPRINE HCL 5 MG TABLET PO PRN ×2 (06:39→20:05)
[2019-06-14] MEDS: busPIRone HCL 10 MG TABLET (FP) PO SCH ×3 (06:39→21:16)
[2019-06-14 07:03] VITALS: TEMP 97.8
[2019-06-14] MEDS ORDERED: PT OWN MED DRAWER 7, Y5N ONE ×5 (08:55→22:04)
[2019-06-14] MEDS: FERROUS SO4 325 MG TABLET (FP) PO SCH ×2 (09:43→21:15)
[2019-06-14] MEDS: PRENATAL VITAMINS W/ FOLIC ACID TABLET (FP) PO SCH (09:44)
[2019-06-14] MEDS: PANTOPRAZOLE 40 MG TABLET PO SCH (09:44)
[2019-06-14] MEDS: LORATADINE 10 MG TABLET PO SCH (09:44)
[2019-06-14] MEDS: BUPRENORPHINE/NALOXONE 4 MG/1 MG FILM PACKET SL SCH (09:45)
[2019-06-14] MEDS: NICOTINE POLACRILEX 2 MG GUM BUC PRN (09:45)
[2019-06-14] MEDS: LURASIDONE HCL 40 MG TABLET PO SCH (09:45)
[2019-06-14] MEDS: hydrOXYzine PAMOATE 25 MG CAPSULE (FP) PO PRN ×2 (09:45→21:15)
[2019-06-14] MEDS: IBUPROFEN 600 MG TABLET (FP) PO PRN ×2 (09:45→20:05)
[2019-06-14] MEDS: ASCORBIC ACID 500 MG TABLET (FP) PO SCH ×2 (09:45→21:15)
[2019-06-14] MEDS: LIDOCAINE 5% TOPICAL PATCH TP SCH (09:46)
[2019-06-14] MEDS: AMOXICILLIN - 500 MG, AMOXICILLIN - 250 MG PO SCH ×2 (12:05→21:16)
[2019-06-14] MEDS: ACETAMINOPHEN 325 MG TABLET (FP) PO PRN (14:32)
[2019-06-14] MEDS: THIAMINE HCL 100 MG TABLET (FP) PO SCH (21:15)
[2019-06-14] MEDS: MIRTAZAPINE 15 MG TABLET (FP) PO SCH (21:18)
[2019-06-14] MEDS: LIDOCAINE PATCH REMOVAL MC SCH (21:18)
[2019-06-14] MEDS: METHYL SALICYLATE/MENTHOL OINT 30 GM TUBE TP SCH (22:00)
[2019-06-15] MEDS ORDERED: PT OWN MED DRAWER 7, Y5N ONE ×5 (06:17→21:48)
[2019-06-15] MEDS: busPIRone HCL 10 MG TABLET (FP) PO SCH ×3 (06:26→21:46)
[2019-06-15] MEDS: CYCLOBENZAPRINE HCL 5 MG TABLET PO PRN ×2 (06:26→21:44)
[2019-06-15] MEDS: GABAPENTIN 300 MG CAPSULE PO SCH ×3 (06:26→21:45)
[2019-06-15 06:49] VITALS: BP 102/69; PULSE 76
[2019-06-15] MEDS: PANTOPRAZOLE 40 MG TABLET PO SCH (09:45)
[2019-06-15] MEDS: LORATADINE 10 MG TABLET PO SCH (09:45)
[2019-06-15] MEDS: FERROUS SO4 325 MG TABLET (FP) PO SCH ×2 (09:45→21:44)
[2019-06-15] MEDS: PRENATAL VITAMINS W/ FOLIC ACID TABLET (FP) PO SCH (09:45)
[2019-06-15] MEDS: LIDOCAINE 5% TOPICAL PATCH TP SCH (09:45)
[2019-06-15] MEDS: LURASIDONE HCL 40 MG TABLET PO SCH (09:45)
[2019-06-15] MEDS: BUPRENORPHINE/NALOXONE 4 MG/1 MG FILM PACKET SL SCH (09:46)
[2019-06-15] MEDS: ASCORBIC ACID 500 MG TABLET (FP) PO SCH ×2 (09:46→21:48)
[2019-06-15] MEDS: hydrOXYzine PAMOATE 25 MG CAPSULE (FP) PO PRN ×2 (09:48→21:44)
[2019-06-15] MEDS: MAGNESIUM HYDROX 2400MG/30ML ORAL SUSPENSION 30 ML CUP PO PRN (09:49)
[2019-06-15] MEDS: NICOTINE POLACRILEX 2 MG GUM BUC PRN ×2 (09:49→13:35)
[2019-06-15] MEDS: IBUPROFEN 600 MG TABLET (FP) PO PRN ×2 (09:49→21:44)
--- NOTE | 2019-06-15 10:52 | PN ---
[facility] Progress Note Note: Patient is scheduled for discharge tomorrow. Scripts for 30 days supply of medications(Wellbutrin XL 150 mg/day, Gabapentin 600 mg/tid, Buspar 10 mg/tid, Remeron 15 mg/hs, Latuda 40 mg/day) will be electronically transmitted to [facility] at [address] [place] [address]
[2019-06-15] MEDS: THIAMINE HCL 100 MG TABLET (FP) PO SCH (21:44)
[2019-06-15] MEDS: MIRTAZAPINE 15 MG TABLET (FP) PO SCH (21:44)
[2019-06-15] MEDS: LIDOCAINE PATCH REMOVAL MC SCH (21:46)
[2019-06-15] MEDS: METHYL SALICYLATE/MENTHOL OINT 30 GM TUBE TP SCH (21:46)
[2019-06-16] MEDS ORDERED: PT OWN MED DRAWER 7, Y5N ONE (06:08)
[2019-06-16] MEDS: GABAPENTIN 300 MG CAPSULE PO SCH (07:19)
[2019-06-16] MEDS: CYCLOBENZAPRINE HCL 5 MG TABLET PO PRN (07:19)
[2019-06-16] MEDS: busPIRone HCL 10 MG TABLET (FP) PO SCH (07:19)
[2019-06-16] MEDS: ACETAMINOPHEN 325 MG TABLET (FP) PO PRN (07:22)
--- NOTE | 2019-06-16 08:47 | DS ---
[facility] Rehab Discharge Summary - [facility] Re[facility] Discharge Summary Admission Date: 05/19/19 Discharge Date: 06/16/19 - History Present History: Alcohol dependence, Cocaine dependence, Opioid dependence Additional Comments: pt is a 48 y/o female with a hx of TIM admitted to rehab and scheduled for discharge today. Pertinent Past History: Asthma GERD s/p CVA Neuropathy Anxiety disorder Panic Attacks MDD Seasonal Allergies - Discharge Physical Exam Vital Signs: Vital Signs Temperature 97.8 F 06/15/19 06:48 Pulse Rate 76 06/15/19 06:48 Respiratory Rate 18 06/16/19 03:30 Blood Pressure 102/69 06/15/19 06:48 O2 Sat by Pulse Oximetry (%) Pertinent Admission Physical Exam Findings: Laboratory Tests 05/20/19 05/20/19 05/20/19 08:28 08:28 08:28 WBC 4.9 RBC 3.80 Hgb 9.3 L Hct 29.4 L MCV 77.3 L MCH 24.5 L MCHC 31.8 L RDW 18.9 H Plt Count 321 MPV 7.1 L Sodium 137 Potassium 4.1 Chloride 105 Carbon Dioxide 24 Anion Gap 8 BUN 14.7 Creatinine 0.9 Est GFR (CKD-EPI)AfAm 88.25 Est GFR (CKD-EPI)NonAf 76.14 POC Glucometer Random Glucose 169 H Hemoglobin A1c % Calcium 9.6 Total Bilirubin 0.5 AST 23 ALT 28 Alkaline Phosphatase 85 Total Protein 6.9 Albumin 3.7 Urine Color Urine Appearance Urine pH Ur Specific [place] Urine Protein Urine Glucose (UA) Urine Ketones Urine Blood Urine Nitrite Urine Bilirubin Urine Urobilinogen Ur Leukocyte Esterase Urine WBC (Auto) Urine RBC (Auto) Urine Casts (Auto) U Epithel Cells (Auto) Urine Bacteria (Auto) RPR Titer Nonreactive HIV 1&2 Ag/Ab, 4th Gen 05/21/19 05/22/19 05/23/19 08:00 08:00 06:52 WBC RBC Hgb Hct MCV MCH MCHC RDW Plt Count MPV Sodium Potassium Chloride Carbon Dioxide Anion Gap BUN Creatinine Est GFR (CKD-EPI)AfAm Est GFR (CKD-EPI)NonAf POC Glucometer 133 Random Glucose Hemoglobin A1c % Calcium Total Bilirubin AST ALT Alkaline Phosphatase Total Protein Albumin Urine Color Yellow Urine Appearance Clear Urine pH 6.5 Ur Specific [place] 1.015 Urine Protein Negative Urine Glucose (UA) Negative Urine Ketones Negative Urine Blood Negative Urine Nitrite Negative Urine Bilirubin Negative Urine Urobilinogen 0.2 Ur Leukocyte Esterase Trace Urine WBC (Auto) 3 Urine RBC (Auto) 1 Urine Casts (Auto) 1 U Epithel Cells (Auto) 7.8 Urine Bacteria (Auto) 75.3 RPR Titer HIV 1&2 Ag/Ab, 4th Gen Non reactive 05/24/19 05/25/19 05/26/19 06:43 06:33 08:10 WBC 5.1 RBC 3.67 Hgb 9.0 L Hct 29.1 L MCV 79.2 L MCH 24.6 L MCHC 31.1 L RDW 19.3 H Plt Count 330 MPV 7.3 L Sodium Potassium Chloride Carbon Dioxide Anion Gap BUN Creatinine Est GFR (CKD-EPI)AfAm Est GFR (CKD-EPI)NonAf POC Glucometer 108 88 Random Glucose Hemoglobin A1c % Calcium Total Bilirubin AST ALT Alkaline Phosphatase Total Protein Albumin Urine Color Urine Appearance Urine pH Ur Specific [place] Urine Protein Urine Glucose (UA) Urine Ketones Urine Blood Urine Nitrite Urine Bilirubin Urine Urobilinogen Ur Leukocyte Esterase Urine WBC (Auto) Urine RBC (Auto) Urine Casts (Auto) U Epithel Cells (Auto) Urine Bacteria (Auto) RPR Titer HIV 1&2 Ag/Ab, 4th Gen 05/26/19 05/28/19 06/09/19 09:00 10:00 07:00 WBC 9.6 RBC 3.96 Hgb 10.3 L Hct 32.5 MCV 82.2 MCH 25.9 MCHC 31.6 L RDW 24.0 H Plt Count 275 MPV 7.7 Sodium Potassium Chloride Carbon Dioxide Anion Gap BUN Creatinine Est GFR (CKD-EPI)AfAm Est GFR (CKD-EPI)NonAf POC Glucometer Random Glucose Hemoglobin A1c % 4.9 Calcium Total Bilirubin AST ALT Alkaline Phosphatase Total Protein Albumin Urine Color Yellow Urine Appearance Clear Urine pH 7.5 Ur Specific [place] 1.012 Urine Protein Negative Urine Glucose (UA) Negative Urine Ketones Negative Urine Blood Negative Urine Nitrite Negative Urine Bilirubin Negative Urine Urobilinogen 0.2 Ur Leukocyte Esterase Negative Urine WBC (Auto) Urine RBC (Auto) Urine Casts (Auto) U Epithel Cells (Auto) Urine Bacteria (Auto) RPR Titer HIV 1&2 Ag/Ab, 4th Gen - Treatment Discharge Condition: Discharge condition good Hospital Course: rehabilitated safely - Medication Discharge Medications: Ambulatory Orders Aspirin [ASA -] 81 mg PO DAILY 11/08/17 Sumatriptan Succinate [Imitrex -] 50 mg PO DAILY PRN 11/08/17 Cetirizine HCl 10 mg PO DAILY #30 tablet 11/14/17 Pantoprazole Sodium [Protonix -] 40 mg PO DAILY #14 tablet.ec 11/14/17 Varenicline Tartrate [Chantix -] 1 mg PO BID #60 tab 11/14/17 Buprenorphine HCl/Naloxone HCl [Suboxone 8 mg-2 mg Sl Tablets] 1 each SL AM #7 tab.subl MDD 8 mg 07/15/18 Bupropion HCl [Wellbutrin Sr] 150 mg PO DAILY 05/19/19 Mirtazapine 7.5 mg PO HS 05/20/19 Bupropion HCl [Wellbutrin Xl -] 150 mg PO DAILY #30 tab.sr.24h 06/15/19 Buspirone HCl [Buspar -] 10 mg PO TID #90 tablet 06/15/19 Gabapentin 600 mg PO TID #90 tablet 06/15/19 Lurasidone HCl [Latuda -] 40 mg PO DAILY #30 tablet 06/15/19 Mirtazapine [Remeron -] 15 mg PO HS #30 tablet 06/15/19 - Medication-Assisted Treatment (MAT) Medication-Assisted Treatment (MAT): Yes Medication Prescribed: Suboxone MAT Follow-up Referral: [facility] - Discharge Instructions Diet, activity, other medical instructions: Diet:Regular Activity: oob ad jorge luis Other medical instructions:follow up with your Suboxone provider at [facility] on [place], [place] for continued treatment. - Diagnosis (1) Encounter for monitoring Suboxone maintenance therapy Status: Chronic (2) Asthma Status: Chronic Qualifiers: Asthma severity: mild intermittent Asthma complication type: with status asthmaticus (3) Cocaine dependence Status: Chronic Qualifiers: Substance use status: uncomplicated Qualified Code(s): F14.20 - Cocaine dependence, uncomplicated (4) EtOH dependence Status: Chronic Qualifiers: Substance use status: uncomplicated Qualified Code(s): F10.20 - Alcohol dependence, uncomplicated (5) GERD (gastroesophageal reflux disease) Status: Chronic Qualifiers: Esophagitis presence: without esophagitis Qualified Code(s): K21.9 - Gastro -esophageal reflux disease without esophagitis (6) Nicotine dependence Status: Chronic Qualifiers: Nicotine product type: cigarettes Substance use status: in withdrawal Qualified Code(s): F17.213 - Nicotine dependence, cigarettes, with withdrawal (7) Opioid dependence Status: Chronic Qualifiers: Substance use status: uncomplicated Qualified Code(s): F11.20 - Opioid dependence, uncomplicated (8) Status post CVA Status: Chronic - Follow-up Referral Minutes to complete discharge: 10 - AMA Did Patient Leave Against Medical Advice: No Additional Comments: Pt was discharged earlier in the morning and was not seen by this press writer before pt exit. Pt stated to nurse she will follow up with her provider after discharge.
== END 2019-06-16 07:30 | disposition home or self-care (01) | DRG 772 ==
LOC: YASAS 12:39 → Y3E 20:06
PROVIDERS: ADMIT Neuromusculoskeletal Medicine & OMM; ATTEND Neuromusculoskeletal Medicine & OMM
PROC: HZ42ZZZ Group Counseling for Substance Abuse Treatment, Cognitive-Behavioral (ICD-10-PCS; principal; 2019-05-19)
DX: F10.20 Alcohol dependence, uncomplicated (principal); F11.20 Opioid dependence, uncomplicated; F14.20 Cocaine dependence, uncomplicated; F17.213 Nicotine dependence, cigarettes, with withdrawal; F32.9 Major depressive disorder, single episode, unspecified; F41.9 Anxiety disorder, unspecified; F41.0 Panic disorder [episodic paroxysmal anxiety]; F90.9 Attention-deficit hyperactivity disorder, unspecified type; F19.280 Other psychoactive substance dependence with psychoactive substance-induced anxiety disorder; F19.282 Other psychoactive substance dependence with psychoactive substance-induced sleep disorder; J45.20 Mild intermittent asthma, uncomplicated; M54.5 Low back pain; K21.9 Gastro-esophageal reflux disease without esophagitis; G47.00 Insomnia, unspecified; R50.9 Fever, unspecified; R73.9 Hyperglycemia, unspecified; D64.9 Anemia, unspecified; K59.00 Constipation, unspecified; R35.0 Frequency of micturition; Z86.73 Personal history of transient ischemic attack (TIA), and cerebral infarction without residual deficits; Z91.013 Allergy to seafood
CPT/HCPCS: 36415; 71046-TC-FY; 80053; 81003; 82962; 83036; 85027; 86593; 87389; G0008; Q2036